=== PATIENT | male | born 1960 | race Caucasian/White ===

== ENCOUNTER 2019-09-05 09:19 | Emergency (ER) | payer MEDICARE, MEDICAID, SELFPAY ==
--- NOTE | ~2019-09-05 | XR_ITS ---
[id number] DATE: 09/05/2019 09:39 INDICATION: Anterior lower right rib pain TECHNIQUE: PA chest. 3 views of the right ribs. COMPARISON: None FINDINGS: No recent right rib fracture or bone destruction is evident. No pneumothorax. Diffuse idiopathic skeletal hyperostosis of the thoracic spine. IMPRESSION: No recent rib fracture or bone destruction detected Reviewed, dictated and finalized at [facility]. Reviewed, dictated and finalized at location A.
[2019-09-05 09:19] VITALS: BP 130/94; PULSE 73; RESP 20; TEMP 36.4; O2SAT 97
--- NOTE | 2019-09-05 09:21 | ECG_ITS ---
Measurements Intervals [place] Rate: 74 P: 49 DC: 184 QRS: 21 QRSD: 84 T: 41 QT: 363 QTc: 404 Interpretive Statements SINUS RHYTHM NORMAL ECG Electronically Signed On 09-05-2019 9:33:57 CDT by Renny Dc D.O.
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
--- NOTE | 2019-09-05 11:16 | PC.NURSE ---
Introduced to patient, bedside report from off-going RN.
[2019-09-05 11:43] VITALS: BP 132/94; PULSE 70; RESP 16; TEMP 36.6; O2SAT 99
== END 2019-09-05 11:45 | disposition home or self-care (01) ==
PROVIDERS: Emergency Provider Emergency Medicine; PCP Family Medicine
DX: R07.81 Pleurodynia (principal); F17.200 Nicotine dependence, unspecified, uncomplicated; Y04.2XXA Assault by strike against or bumped into by another person, initial encounter
CPT/HCPCS: 71101; 93005; 99283

== ENCOUNTER 2020-04-04 14:57 | Emergency (ER) | payer MEDICARE, MEDICAID, SELFPAY ==
--- NOTE | ~2020-04-04 | CT_ITS ---
EXAMINATION: CT brain wo con INDICATION: Fall and confusion COMPARISON: 10/14/2007 TECHNIQUE: Standard unenhanced head CT. The dose-length product (DLP) was 605.33 mGy-cm. The mA was a djusted according to patient size. Iterative reconstruction technique was employed. FINDINGS: There is no acute intraparenchymal hemorrhage. No evidence of mass lesion. No evidence of a cute infarction. There is a chronic infarct of the left frontal lobe. There is moderate periventricul ar and subcortical hypodensity probably related to small vessel ischemic disease. Cavum septum lucidu m is noted. There is mild prominence of the sulci and ventricles related to cerebral atrophy. Intracr anial calcified cerebral atherosclerosis is noted. There are no extra-axial collections. There is no mass effect or midline shift. The orbits and soft tissues are unremarkable. The visualized sinuses a nd mastoid air cells are well aerated. IMPRESSION: 1. Old left frontal lobe infarct without acute intracranial abnormality. 2. Age related findings. Reviewed, dictated and finalized at location A. TROMECHANICAL TECHNOLOGIST
--- NOTE | ~2020-04-04 | CT_ITS ---
EXAMINATION: CT cervical spine wo con DATE: 04/04/2020 17:06 INDICATION: Neck pain TECHNIQUE: Computed tomography (CT) of the cervical spine was performed without intravenous contrast. The dose-length product (DLP) was 184.15 mGy-cm. Automated exposure control and iterative reconstruc tion technique were employed. COMPARISON: None FINDINGS: There is no fracture. The vertebral body heights are normal. There are 2 mm retrolisthesis of C5 on C6. There is mild loss of intervertebral disc space height at C5-6. The odontoid is intact. The prevertebral soft tissues are normal. Small degenerative osteophytes project from the anterior en dplates of multiple vertebral bodies. There is moderate to severe facet and uncovertebral joint osteo arthritis. IMPRESSION: 1. Mild cervical spondylosis without acute findings. Reviewed, dictated and finalized at location A. ANICAL ENGINEERING TECHNICIAN
[2020-04-04 14:57] VITALS: BP 159/95; PULSE 75; RESP 18; TEMP 36.6; O2SAT 98
--- NOTE | 2020-04-04 15:11 | ECG_ITS ---
Measurements Intervals [place] Rate: 72 P: 25 [place]: 173 QRS: 9 QRSD: 89 T: 45 QT: 360 QTc: 397 Interpretive Statements SINUS RHYTHM BORDERLINE T WAVE ABNORMALITY- ANTERIOR LEADS BASELINE ARTIFACT- I, II, V1-V3, V6 BORDERLINE ECG Electronically Signed On 04-04-2020 16:32:55 [place] by Renny Dc D.O.
[2020-04-04 15:23] VITALS: BP 159/90; PULSE 76; RESP 22; TEMP 36.8; O2SAT 97
[2020-04-04 15:30] VITALS: RESP 16; O2SAT 99
[2020-04-04 15:42] LABS: Basophils Percent Auto 0.5 % (0.2-1.2); Eosinophils Absolute Auto 0.1 K/mm3 (0-0.3); Eosinophils Percent Auto 0.9 % (0-4.4); Hematocrit 43.6 % (42.0-52.0); Hemoglobin 14.4 g/dL (14.0-18.0); Immature Granulocyte Absolute 0.01 K/mm3 (0.00-0.031); Immature Granulocyte Percent A 0.2 % (0-0.5); Lymphocytes Absolute Auto 1.76 K/mm3 (0.9-3.2); Lymphocytes Percent Auto 27.3 % (18.3-44.2); Mean Corpuscular Hemoglobin 31.6 pg (26-34); Mean Corpuscular Volume 95.6 fl (80-100); Mean Platelet Volume 9.2 fl (7.4-10.4); Monocytes Absolute Auto 0.5 K/mm3 (0.1-0.6); Monocytes Percent Auto 8.1 % (2.6-8.5); Neutrophils Absolute Auto 4.1 K/mm3 (1.3-6.7); Platelet Count Result 240 k/mm3 (150-375); Red Blood Count 4.56 M/mm3 (4.6-6.20); Red Cell Distribution Width 14.3 % (11.5-14.5); White Blood Count 6.5 K/mm3 (4.5-10.0)
[2020-04-04 15:44] LABS: Add Urine Microscopic? NO; Appearance Urine Clear (Clear); Bilirubin Urine Negative (Negative); Blood Urine Negative (Negative); Color Urine Colorless (Yellow); Glucose Urine UA Negative (Negative); Ketones Urine Negative (Negative); Leukocyte Esterase Ur Negative LEU/UL (Negative); Nitrate Urine Negative (Negative); Protein Urine Negative (Negative); Specific Grav Ur 1.005 (1.001-1.035); Urobilinogen Urine Negative mg/dL (<2.0)
[2020-04-04 15:56] LABS: Alanine Aminotransferase 18 U/L (4-50); Albumin Level 4.1 g/dL (3.5-5.1); Alkaline Phosphatase 58 U/L (38-126); Anion Gap 9 mmol/L (8-16); Aspartate Amino Transferase 24 U/L (17-59); Bilirubin,Total 0.4 mg/dL (0.2-1.3); Blood Urea Nitrogen 17 mg/dL (9-20); Calcium 9.1 mg/dL (8.4-10.2); Carbon Dioxide 31 mmol/L (22-30); Chloride 100 mmol/L (98-107); Estimated CRCL calculation 90 ml/min; Estimated Glomerular Filt Rate > 60; Ethanol 265 mg/dL (<10); Glucose 121 mg/dL (75-110); Potassium 3.6 mmol/L (3.4-5.0); Sodium 140 mmol/L (137-145)
[2020-04-04 15:58] LABS: Amphetamine Screen Urine Negative (Negative); Barbiturate Screen Urine Negative (Negative); Benzodiazepines Screen Urine Negative (Negative); Cannabinoid Screen Urine Negative (Negative); Cocaine Screen Urine Negative (Negative); Methadone Screen Urine Negative (Negative); Opiate Screen Urine Negative (Negative); Phencyclidine Screen Urine Negative (Negative)
--- NOTE | 2020-04-04 16:31 | ED.FALL ---
HPI - Fall General Chief Complaint: Fall Stated Complaint: Intoxication Time Seen by Provider: 04/04/20 15:25 Related Data Home Medications Medication Instructions Recorded Confirmed famotidine 09/05/19 ziprasidone HCl 09/05/19 Allergies Allergy/AdvReac Type Severity Reaction Status Date / Time No Known Allergies Allergy Unverified 09/05/19 09:29 Review of Systems Review of Systems: Narrative: CONSTITUTIONAL: Denies fever, chills, or sweats. EYES: Denies visual changes, redness, or discharge. ENT: Denies rhinorrhea, congestion, sore throat, or otalgia. CARDIOVASCULAR: Denies chest pain, palpitations, or edema. RESPIRATORY: Denies cough or dyspnea. GASTROINTESTINAL: Denies abdominal pain, nausea, vomiting, or diarrhea. GENITOURINARY: Denies dysuria or hematuria. SKIN: Denies rash or itching. MUSCULOSKELETAL: Denies back pain, joint pain, or myalgia. NEUROLOGIC: Denies headache, numbness, dizziness, or weakness. PSYCHIATRIC: Denies anxiety or depression. [facility] Past Medical History Medical History (Updated 04/04/20 @ 18:03 by MARIA D Mayo) Alcohol abuse Depression Eczema 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 No natural teeth Skull fracture Type 2 diabetes, diet controlled Social History Social History Smoking status: Current every day smoker Tobacco type: cigarettes Alcohol intake: current Substance use: unknown Gender identity (if verbalized by the patient): Male Exam Narrative: Exam Narrative: GENERAL: Well-appearing, well-nourished, and intoxicated. HEAD: Normocephalic, atraumatic. EYES: No redness or drainage. ENT: Mucous membranes pink and moist. NECK: AROM. Supple. No lymphadenopathy. CHEST: No respiratory distress. HEART: Regular rate and rhythm. No murmur appreciated. Normal peripheral pulses. EXTREMITIES: Normal range of motion. SKIN: Warm, dry, no rash. NEURO: No focal deficits. Alert and oriented x2-3. PSYCH: Normal affect. No signs of depression or anxiety. Course Reevaluation(s) Reevaluation #1: Patient sister currently at bedside at this time. Sister reports that patient will be coming home with her to stay tonight as he continues to be slightly intoxicated. Date: 04/04/20 Time: 18:06 Vital Signs Vital signs: Vital Signs Temperature 36.6 C 04/04/20 14:57 Pulse Rate 75 04/04/20 14:57 Respiratory Rate 18 04/04/20 14:57 Blood Pressure 159/95 H 04/04/20 14:57 Pulse Oximetry 98 04/04/20 14:57 Temperature 36.8 C 04/04/20 15:23 Pulse Rate 71 04/04/20 16:35 Respiratory Rate 18 04/04/20 16:35 Blood Pressure 119/74 04/04/20 16:35 Pulse Oximetry 100 04/04/20 16:35 Reviewed-patient is informed that they may have pre-hypertension or hypertension based on a blood pressure reading. I recommend the patient call the primary care provider listed on their discharge instructions or a physician of their choice this week to arrange follow-up for further evaluation of possible pre-hypertension or hypertension. MDM - Fall MDM Narrative Medical decision making narrative: Patient CT G was like x-ray was negative patient CT negative for abnormality. Patient's lab work is nonremarkable. Patient is intoxicated at this time. Patient's sister arrives to see patient and take patient home. Discussed with sister and patient that patient needs to stop drinking alcohol as falls many other injuries could occur. Patient is stable for discharge to home at this time with sister. Differential Diagnosis Differential diagnosis: Likely syncope and other (EtOH, fall) Lab Data Result diagrams: 04/04/20 15:31 04/04/20 15:31 Labs: Lab Results 04/04/20 04/04/20 04/04/20 Range/Units 15:31 15:31 15:31 WBC 6.5 (4.5-10.0) K/mm3 RBC 4.56 L (4.6-6.20) M/mm3 Hgb 14.4 (14.0-18.0) g/dL Hct 43.6 (42.0-52.0) % MCV 95.6 (80-100) fl MCH 31.6 (26-34) pg MCHC 3
[2020-04-04 16:35] VITALS: BP 119/74; PULSE 71; RESP 18; O2SAT 100
[2020-04-04 18:08] VITALS: BP 123/71; PULSE 74; RESP 19; TEMP 36.3; O2SAT 99
== END 2020-04-04 18:08 | disposition home or self-care (01) ==
PROVIDERS: Emergency Medicine; Emergency Provider Nurse Practitioner; PCP Family Medicine
DX: F10.129 Alcohol abuse with intoxication, unspecified (principal); F32.9 Major depressive disorder, single episode, unspecified; E11.9 Type 2 diabetes mellitus without complications; F17.210 Nicotine dependence, cigarettes, uncomplicated; R03.0 Elevated blood-pressure reading, without diagnosis of hypertension; Y90.8 Blood alcohol level of 240 mg/100 ml or more; Z79.899 Other long term (current) drug therapy
CPT/HCPCS: 36415; 70450; 72125; 80053; 80307; 81003; 85025; 93005; 99284

== ENCOUNTER 2020-05-31 19:03 | Emergency (ER) | payer MEDICARE, MEDICAID, SELFPAY ==
--- NOTE | ~2020-05-31 | CT_ITS ---
EXAMINATION: CT brain wo con INDICATION: Head injury COMPARISON: 04/04/2020 TECHNIQUE: Standard unenhanced head CT. The dose-length product (DLP) was 681.00 mGy-cm. The mA was a djusted according to patient size. Iterative reconstruction technique was employed. FINDINGS: There is no acute intraparenchymal hemorrhage. No evidence of mass lesion. No evidence of a cute infarction. There is an old infarct of the left frontal lobe. There is moderate periventricular and subcortical hypodensity probably related to small vessel ischemic disease. There is mild prominen ce of the sulci and ventricles related to cerebral atrophy. Intracranial calcified cerebral atheroscl erosis is noted. There are no extra-axial collections. There is no mass effect or midline shift. The orbits and soft tissues are unremarkable. The visualized sinuses and mastoid air cells are well aera lakisha. IMPRESSION: 1. Old left frontal lobe infarct without acute intracranial abnormality. 2. Age related findings. Reviewed, dictated and finalized at location A. ICAL ASST
--- NOTE | ~2020-05-31 | CT_ITS ---
EXAMINATION: CT cervical spine wo con DATE: 05/31/2020 20:14 INDICATION: Head injury TECHNIQUE: Computed tomography (CT) of the cervical spine was performed without intravenous contrast. The dose-length product (DLP) was 192.38 mGy-cm. Automated exposure control and iterative reconstruc tion technique were employed. COMPARISON: 04/04/2020 FINDINGS: There is no fracture. The vertebral body heights are normal. Again noted are 2 mm of stable retrolisthesis of C5 on C6. There is mild loss of intervertebral disc space height at C5-6. The odon toid is intact. The prevertebral soft tissues are normal. Small degenerative osteophytes project from the anterior endplates of multiple vertebral bodies. There is moderate to severe multilevel facet an d uncovertebral joint osteoarthritis. IMPRESSION: 1. Mild cervical spondylosis without acute findings or significant interval change. Reviewed, dictated and finalized at location A. MARKETING STRATEGIST IMPRESSION: 1. Mild cervical spondylosis without acute findings or significant interval ely nge.
[2020-05-31 19:06] VITALS: BP 126/98; PULSE 88; RESP 18; TEMP 36.6; O2SAT 100
[2020-05-31 20:00] VITALS: BP 128/77; PULSE 76; RESP 13; O2SAT 100
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
[2020-05-31 21:00] VITALS: BP 114/69; PULSE 68; RESP 14; O2SAT 98
[2020-05-31] MEDS: TETANUS,DIPHTHERIA,AC PERTUSSIS ADULT (0.5 ML) BOOSTRIX IM (21:52)
[2020-05-31 22:00] VITALS: BP 111/72; PULSE 68; RESP 12; O2SAT 99
[2020-05-31 22:58] VITALS: BP 109/74; PULSE 68; RESP 14; O2SAT 96
[2020-05-31 23:20] VITALS: BP 121/78; PULSE 88; RESP 19; O2SAT 99
== END 2020-05-31 23:20 | disposition home or self-care (01) ==
PROVIDERS: Emergency Provider Emergency Medicine; PCP Family Medicine
DX: S01.112A Laceration without foreign body of left eyelid and periocular area, initial encounter (principal); E11.9 Type 2 diabetes mellitus without complications; F17.210 Nicotine dependence, cigarettes, uncomplicated; Z23 Encounter for immunization; W18.09XA Striking against other object with subsequent fall, initial encounter
CPT/HCPCS: 12011; 70450; 72125; 90471; 90715; 99284

== ENCOUNTER → 2021-06-23 10:18 | Outpatient (CLI) | payer OTHER, SELFPAY ==
--- NOTE | ~2021-06-23 | XR_ITS ---
EXAMINATION: XR chest 2V DATE: 06/23/2021 11:16 INDICATION: Chest pain TECHNIQUE: PA and lateral views of the chest are obtained. COMPARISON: 09/05/2019 FINDINGS: The lungs are free of acute opacities. There is no pleural effusion or pneumothorax. The ca rdiomediastinal silhouette is normal. There are bridging osteophytes at multiple levels in the spine, consistent with diffuse idiopathic skeletal hyperostosis (DISH). IMPRESSION: 1. No acute cardiopulmonary abnormality. Reviewed, dictated and finalized at location B.
--- NOTE | ~2021-06-23 | XR_ITS ---
EXAMINATION: XR knee RT 3V DATE: 06/23/2021 11:16 INDICATION: Right knee pain TECHNIQUE: Three views of the right knee were obtained. COMPARISON: None. FINDINGS: Alignment is normal. No fracture or osteochondral lesion. There is mild tricompartmental os teoarthritis characterized by tiny marginal osteophytes. No joint effusion/synovitis. Soft tissues a re unremarkable. IMPRESSION: 1. Tricompartmental osteoarthritis. Reviewed, dictated and finalized at location B.
== END ==
PROVIDERS: PCP Emergency Medicine; Visit Provider Emergency Medicine
DX: Z87.891 Personal history of nicotine dependence (principal); M17.11 Unilateral primary osteoarthritis, right knee
CPT/HCPCS: 71046; 73562

== ENCOUNTER 2021-06-28 08:48 | Emergency (ER) | payer OTHER, SELFPAY ==
[2021-06-28 08:55] VITALS: BP 150/88; PULSE 72; RESP 12; TEMP 36.4; O2SAT 100
--- NOTE | 2021-06-28 09:02 | PC.NURSE ---
RN attempted to call pt. family x2 no answer.
--- NOTE | 2021-06-28 09:06 | ED.RECABL ---
HPI - Recheck/Abnormal Lab/Rx General Chief Complaint: Recheck/Abnormal Lab/Rx Stated Complaint: low blood counts Time Seen by Provider: 06/28/21 08:58 History of Present Illness HPI narrative: 61-year-old male who is a poor historian presents the emergency room from his doctor's office stating that he had abnormal labs . Patient unable to give any further history. Patient denies any other medical problems. Denies injuries. Related Data Home Medications Medication Instructions Recorded Confirmed No Home Medications 05/31/20 Allergies Allergy/AdvReac Type Severity Reaction Status Date / Time No Known Allergies Allergy Verified 06/28/21 08:59 Review of Systems Review of Systems: CONSTITUTIONAL: Denies fever, chills, or sweats. EYES: Denies visual changes, redness, or discharge. ENT: Denies rhinorrhea, congestion, sore throat, or otalgia. CARDIOVASCULAR: Denies chest pain, palpitations, or edema. RESPIRATORY: Denies cough or dyspnea. GASTROINTESTINAL: Denies abdominal pain, nausea, vomiting, or diarrhea. GENITOURINARY: Denies dysuria or hematuria. SKIN: Denies rash or itching. MUSCULOSKELETAL: Denies back pain, joint pain, or myalgia. NEUROLOGIC: Denies headache, numbness, dizziness, or weakness. PSYCHIATRIC: Denies anxiety or depression. [facility] Past Medical History Medical History Alcohol abuse Depression Eczema 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 No natural teeth Skull fracture Type 2 diabetes, diet controlled Social History Social History Smoking status: Current every day smoker Tobacco type: cigarettes Alcohol intake: current Substance use: unknown Gender identity (if verbalized by the patient): Male Sexual Orientation (if Verbalized by the Patient): Straight or Heterosexual Exam Narrative: GENERAL: Well-appearing, well-nourished, and in no acute distress. HEAD: Normocephalic, atraumatic. EYES: PERRLA and EOMI. ENT: Nares clear, no rhinorrhea or epistaxis. Mucous membranes moist. CHEST: Coarse breath sounds lower HEART: Regular rate and rhythm. No murmur heard. Normal peripheral pulses. ABDOMEN: Soft, nontender, nondistended, normal active bowel sounds. EXTREMITIES: Normal range of motion. No edema. SKIN: Warm, dry, no rash. NEURO: No focal deficits. Alert and oriented x3. PSYCH: Normal mood and affect. Course Vital Signs Vital signs: Vital Signs Temperature 36.4 C 06/28/21 08:55 Pulse Rate 72 06/28/21 08:55 Respiratory Rate 12 06/28/21 08:55 Blood Pressure 150/88 H 06/28/21 08:55 Pulse Oximetry 100 06/28/21 08:55 Temperature 36.4 C 06/28/21 08:55 Pulse Rate 72 06/28/21 08:55 Respiratory Rate 12 06/28/21 09:31 Blood Pressure 150/88 H 06/28/21 08:55 Pulse Oximetry 100 06/28/21 09:31 MDM - Recheck/Abnormal Lab/Rx MDM Narrative Medical decision making narrative: 61-year-old male presented to emergency room with no complaints from his physician's office. 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 During ER stay patient's oxygen has been at 100%. CBC and CMP are unremarkable will discharge patient have follow-up with PCP. Lab Data Attestation: I reviewed the patient's lab results. Result diagrams: 06/28/21 09:19 06/28/21 09:19 Labs: Lab Results 06/28/21 06/28/21 Range/Units 09:19 09:19 WBC 4.8 (4.5-10.0) K/mm3 RBC 5.16 (4.6-6.20) M/mm3 Hgb 15.9 (14.0-18.0) g/dL Hct 49.0 (42.0-52.0) % MCV 95.0 (80-100) fl MCH 30.8 (26-34) pg MCHC 32.4 (32-36) g/dl RDW 14.0 (11.5-14.5) % Plt Count 194 (150-375) k/mm3 MPV 10.2 (7.4-10.4) fl Immature Gran % (Auto) 0.2 (0-0.5) % Neut % (Auto) 59.1 (45.5-73.1) % Lymph % (Auto) 27.7 (18.3-44.2) % [place] % (Auto) 12.0 H (2.6-8.5) % Eos % (Auto)
[2021-06-28 09:27] LABS: Basophils Percent Auto 0.6 % (0.2-1.2); Eosinophils Percent Auto 0.4 % (0-4.4); Hemoglobin 15.9 g/dL (14.0-18.0); Immature Granulocyte Absolute 0.01 K/mm3 (0.00-0.031); Immature Granulocyte Percent A 0.2 % (0-0.5); Lymphocytes Absolute Auto 1.32 K/mm3 (0.9-3.2); Lymphocytes Percent Auto 27.7 % (18.3-44.2); Mean Corpuscular HGB Conc 32.4 g/dl (32-36); Mean Corpuscular Hemoglobin 30.8 pg (26-34); Mean Platelet Volume 10.2 fl (7.4-10.4); Monocytes Absolute Auto 0.6 K/mm3 (0.1-0.6); Neutrophils Absolute Auto 2.8 K/mm3 (1.3-6.7); Neutrophils Percent Auto 59.1 % (45.5-73.1); Platelet Count Result 194 k/mm3 (150-375); Red Blood Count 5.16 M/mm3 (4.6-6.20); White Blood Count 4.8 K/mm3 (4.5-10.0)
[2021-06-28 09:31] VITALS: RESP 12; O2SAT 100
[2021-06-28 09:38] LABS: Alanine Aminotransferase 17 U/L (4-50); Albumin Level 4.6 g/dL (3.5-5.1); Alkaline Phosphatase 70 U/L (38-126); Anion Gap 7 mmol/L (8-16); Aspartate Amino Transferase 22 U/L (17-59); Blood Urea Nitrogen 19 mg/dL (9-20); Calcium 9.4 mg/dL (8.4-10.2); Carbon Dioxide 29 mmol/L (22-30); Chloride 101 mmol/L (98-107); Estimated Glomerular Filt Rate > 60; Glucose 147 mg/dL (65-110); Potassium 4.6 mmol/L (3.4-5.0); Sodium 137 mmol/L (137-145)
[2021-06-28 10:08] VITALS: BP 130/83; PULSE 64; RESP 12; RESP 14; O2SAT 100
[2021-06-28 10:15] VITALS: BP 133/88; PULSE 88; RESP 19; O2SAT 97
== END 2021-06-28 10:15 | disposition home or self-care (01) ==
PROVIDERS: Emergency Provider Nurse Practitioner Family; PCP Emergency Medicine
DX: Z04.89 Encounter for examination and observation for other specified reasons (principal); E11.9 Type 2 diabetes mellitus without complications; F17.210 Nicotine dependence, cigarettes, uncomplicated
CPT/HCPCS: 36415; 80053; 85025; 99283

== ENCOUNTER 2021-07-01 19:47 | Emergency (ER) | payer OTHER, SELFPAY ==
[2021-07-01 19:59] VITALS: BP 125/86; PULSE 93; RESP 18; TEMP 36.4; O2SAT 100
--- NOTE | 2021-07-02 01:38 | PC.NURSE ---
PT aox3 walked out of waiting room.
--- NOTE | 2021-07-02 01:49 | PC.NURSE ---
no answer x1 for room
--- NOTE | 2021-07-02 02:10 | PC.NURSE ---
2nd call for a room, pt no answer. lwbs status marked.
== END 2021-07-02 03:19 | disposition left against medical advice (07) ==
LOC: ANHED 07-02 02:57
PROVIDERS: PCP Emergency Medicine
DX: M79.672 Pain in left foot (principal); M79.671 Pain in right foot
CPT/HCPCS: 99199

== ENCOUNTER 2022-10-28 20:12 | Inpatient (IN) | payer OTHER, SELFPAY ==
[2022-10-28] VITALS (11 sets, daily range): BP systolic 124–161; BP diastolic 74–91; PULSE 81–90; RESP 24–47; TEMP 36.9; O2SAT 84–97
--- NOTE | ~2022-10-28 | XR_ITS ---
EXAMINATION: XR chest 2V DATE: 11/02/2022 16:32 INDICATION: Hypoxia TECHNIQUE: AP and lateral views of the chest are obtained. COMPARISON: 10/28/2022 FINDINGS: There is mild atelectasis of the lung bases, left greater than right. Mild pulmonary edema persists with interval improvement. There are small pleural effusions. There is no pneumothorax the c ardiomediastinal silhouette is stable. There is moderate thoracic spondylosis. IMPRESSION: 1. Improving pulmonary edema. 2. Small pleural effusions. Reviewed, dictated and finalized at location F.
--- NOTE | ~2022-10-28 | XR_ITS ---
EXAM: XR hip RT 2V w AP pelvis DATE: 10/28/2022 20:57 HISTORY: pain status post fall . COMPARISON: None available. FINDINGS: Normal mineralization. Comminuted right intertrochanteric fracture with medial angulation. No lytic or blastic lesion. Moderate lumbar degenerative disc disease. Moderate bilateral hip osteoa rthritis. Mild degenerative changes in the bilateral SI joints and pubic symphysis. No erosion or per iosteal change. Soft tissues within normal limits. IMPRESSION: Comminuted, mildly angulated right intertrochanteric fracture. Reviewed, dictated and finalized at location K.
--- NOTE | ~2022-10-28 | US_ITS ---
EXAMINATION: US venous doppler [facility] DATE: 11/03/2022 20:07 INDICATION: Bilateral lower limb pain and swelling TECHNIQUE: Pressley scale images without and with compression and Doppler images of the right lower extre mity veins were obtained. Patient terminated the examination and images of the left lower limb were n ot obtained. COMPARISON: None FINDINGS: The right common femoral vein, greater saphenous vein, profunda femoral vein, femoral vein are patent . The left lower extremity veins were not imaged. IMPRESSION: 1. Limited evaluation of the lower extremity veins due to patient prematurely ending the examination. Visualized deep veins of the proximal right lower extremity are patent. Reviewed, dictated and finalized at location F. IMPRESSION: 1. Limited evaluation of the lower extremity veins due to patient prematurely e nding the examination. Visualized deep veins of the proximal right lower extrem ity are patent.
--- NOTE | ~2022-10-28 | XR_ITS ---
EXAM: [id number]_[id number]_CR DATE: 10/28/2022 20:58 HISTORY: pain status post fall . COMPARISON: None available. FINDINGS: Exam limited by obliquity in both frontal and lateral views. Normal mineralization. Cortic al break noted overlying the lateral patella or femoral condyle. Otherwise no fracture or dislocation . No lytic or blastic lesion. Joint spaces are maintained. No erosion or periosteal change. Soft tiss ues within normal limits. IMPRESSION: Exam limited by positioning difficulties. Possible cortical break laterally, may represen t a lateral condylar fracture or summation artifact from a bipartite patella or patellar osteophytes. Consider repeat 4 view radiographic study of the knee, with attention to standard positioning in the frontal, oblique, and lateral views and the addition of a sunrise view, if the patient's clinical con dition permits. Reviewed, dictated and finalized at location K. IMPRESSION: Exam limited by positioning difficulties. Possible cortical break l aterally, may represent a lateral condylar fracture or summation artifact from a bipartite patella or patellar osteophytes. Consider repeat 4 view radiographic study of the knee, with attention to standa rd positioning in the frontal, oblique, and lateral views and the addition of a sunrise view, if the patient's clinical condition permits.
--- NOTE | ~2022-10-28 | XR_ITS ---
EXAMINATION: XR chest 1V Exam Date/Time: 10/28/2022 20:45 CDT HISTORY: fall chest wall contusion Comparison: 06/23/2021. RESULT: Lines, tubes, and devices: None. Lungs and pleura: Slightly low volumes. Streaky bibasilar opacities, likely scar/atelectasis. Diffus e reticular opacities. Cardiomediastinal silhouette: Stable. Other: No acute osseous or upper abdominal finding. IMPRESSION: Mild interstitial edema. No other acute process detected in the chest. Reviewed, dictated and finalized at location K.
--- NOTE | ~2022-10-28 | XR_ITS ---
XR knee RT min 4V DATE: 10/28/2022 22:02 INDICATION: Pain following fall TECHNIQUE: 5 views including 2 crosstable lateral views COMPARISON: 06/19/2021 right knee FINDINGS: There is a chronic lucency at the superolateral aspect of the patella, also present on 06/19, possibly due to bipartite patella or other chronic process. There is mild periarticular spurring of the patella. Medial and lateral compartment joint spaces are well preserved. No fracture or dislocation or joint effusion. No periosteal reaction or bone destruction. No radiopaq ue intra-articular loose body or chondrocalcinosis. There is diffuse osteopenia. IMPRESSION: No recent fracture or dislocation or joint effusion Mild osteoarthritis Reviewed, dictated and finalized at location A.
--- NOTE | ~2022-10-28 | CT_ITS ---
EXAMINATION: CT cervical spine wo con DATE: 10/28/2022 21:16 INDICATION: Fall head injury TECHNIQUE: Computed tomography (CT) of the cervical spine was performed without intravenous contrast. Automated exposure control and iterative reconstruction technique were employed. The dose-length pro duct was 372.38 mGy-cm. COMPARISON: 05/31/2020. FINDINGS: Vertebral Body Alignment: Intact. Reversed lordosis, centered at C5-6. Craniocervical and atlantoaxial alignment: Moderate degenerative change. Alignment intact. Osseous structures/fracture: No evidence of a lytic or blastic process in the visualized spine. No e vidence of acute fracture. Cervical soft tissues: The paraspinal soft tissues planes are maintained. Biapical pleural scarring a nd small pleural blebs. Degenerative changes: Degenerative changes, without severe neural foraminal or central canal narrowin g. IMPRESSION: No acute fracture or traumatic malalignment in the cervical spine. Reviewed, dictated and finalized at location K.
--- NOTE | ~2022-10-28 | XR_ITS ---
EXAM: XR ankle RT 2V DATE: 10/28/2022 20:58 HISTORY: pain status post fall . COMPARISON: None available. FINDINGS: Normal mineralization. No fracture or dislocation. No lytic or blastic lesion. Scattered d egenerative changes. No erosion or periosteal change. Soft tissues within normal limits. IMPRESSION: No acute osseous finding in the right ankle. Reviewed, dictated and finalized at location K.
--- NOTE | ~2022-10-28 | CT_ITS ---
EXAMINATION: CT brain wo con DATE: 10/28/2022 21:16 INDICATION: Fall head injury . TECHNIQUE: Computed tomography (CT) of the head was performed without intravenous contrast. The mA wa s adjusted according to patient size. Iterative reconstruction technique was employed. The dose-lengt h product was 605.33 mGy-cm. COMPARISON: None. FINDINGS: No acute intracranial hemorrhage or extra-axial fluid collection. No hydrocephalus, mass, or herniation. No acute ischemic infarct. Unremarkable dural venous sinus attenuation. No acute osseous abnormality. Right maxillary air-fluid level. Mucosal thickening in the bilateral maxillary and ethmoid sinuses, t he remaining aerated spaces are clear. Mild atrophy and moderate chronic white matter change. Atherosclerotic intracranial calcification. Le ft frontal encephalomalacia. IMPRESSION: No acute intracranial process. Paranasal sinus findings may represent acute sinusitis in the appropriate clinical context Reviewed, dictated and finalized at [facility] K. IMPRESSION: No acute intracranial process. Paranasal sinus findings may represent acute sinusitis in the appropriate clini gilda context
--- NOTE | ~2022-10-28 | CT_ITS ---
EXAMINATION: CTA chest PE protocol DATE: 11/02/2022 21:08 INDICATION: Hypoxia TECHNIQUE: Computed tomography angiography (CTA) of the chest was performed with 100 mL Omnipaque-350 intravenous contrast timed to evaluate the pulmonary arteries. Coronal maximum intensity projection 3D-reconstructions were created by the technologist. The dose-length product (DLP) was 434.02 mGy-cm. Automated exposure control and iterative reconstruction technique were employed. COMPARISON: None. FINDINGS: There is moderate opacification of the pulmonary arteries. There is a pulmonary embolus in the distal aspect of the left main pulmonary artery extending into the lingula, left upper lobe, and left lower lobe. There appear to be subsegmental emboli in the right lower lobe. Evaluation of periph eral pulmonary arterial branches is limited by respiratory motion. There is straightening of the inte rventricular septum. Cardiomegaly is noted. There are no pathologically enlarged thoracic lymph nodes . Mild bilateral gynecomastia is noted. There are small pleural effusions. No pneumothorax is identif ied. Airspace opacities of the left lower lobe are consistent with atelectasis versus pneumonia. Ther e is mild dependent atelectasis of the right lung. There is mild thoracic spondylosis. There is an ag e-indeterminate compression fracture of the T7 vertebral body. A mildly comminuted right scapular fra cture is noted. IMPRESSION: 1. Acute pulmonary emboli in the distal aspect of the left main pulmonary artery extending into the l ingula, left upper lobe, left lower lobe, and in the right lower lobe with questionable right heart s train. 2. Left lower lobe airspace opacities, consistent with atelectasis versus pneumonia. 3. Cardiomegaly. 4. Mildly comminuted right scapular fracture. These findings were discussed with Mayela on [facility] at 2131 hours on 11/02/2022. Reviewed, dictated and finalized at location F. IMPRESSION: 1. Acute pulmonary emboli in the distal aspect of the left main pulmonary arter y extending into the lingula, left upper lobe, left lower lobe, and in the righ t lower lobe with questionable right heart strain. 2. Left lower lobe airspace opacities, consistent with atelectasis versus pneum onia. 3. Cardiomegaly. 4. Mildly comminuted right scapular fracture. These findings were discussed with Mayela on [facility] at 2131 hours on 023.
--- NOTE | ~2022-10-28 | XR_ITS ---
EXAMINATION: XR surgery orthopedic DATE: 10/30/2022 14:59 INDICATION: Right femoral intertrochanteric nailing TECHNIQUE: 5 fluoroscopic images of the right hip and femur were obtained during procedure performed by Dr. Kirkpatrick. Radiologist was not present for the imaging or procedure. The amount of fluoroscopy t deangelo used during this procedure was 0.8 minutes. COMPARISON: 10/28/2022 FINDINGS: Interval reduction and internal fixation of the previously seen intertrochanteric fracture of the pro ximal right femur with an antegrade intramedullary lary and distal interlocking screw and femoral neck dynamic compression screw fixation. Alignment appears near-anatomic. No new fractures identified. Mi ld to moderate osteoarthritis at the right hip. IMPRESSION: 1. Near-anatomic alignment post reduction and internal fixation of an intratrochanteric fracture of t he proximal right femur. Reviewed, dictated and finalized at location B. IMPRESSION: 1. Near-anatomic alignment post reduction and internal fixation of an intratroc hanteric fracture of the proximal right femur.
--- NOTE | 2022-10-28 20:24 | ECG_ITS ---
Measurements Intervals [place] Rate: 84 P: 64 [place]: 174 QRS: 0 QRSD: 93 T: 46 QT: 366 QTc: 434 Interpretive Statements SINUS RHYTHM CANNOT RULE OUT SEPTAL INFARCT, AGE INDETERMINATE ABNORMAL ECG COMPARED TO ECG 04/04/2020 15:02:15 MYOCARDIAL INFARCT FINDING NOW PRESENT Electronically Signed On 10-29-2022 8:47:07 CDT by Renny Dc D.O.
--- NOTE | 2022-10-28 20:39 | ED.GENADULT ---
HPI - General Adult General Chief complaint: Fall Stated complaint: FALL, R KNEE PAIN Time Seen by Provider: 10/28/22 20:20 History of Present Illness HPI narrative: Patient is a 62-year-old female presents emergency department with chief complaint of fall. Patient reports he is a resident of a independent living facility [facility] the patient last night fell striking his head landing on his right side of his body patient reports that he laid on the floor since last night around 5 PM patient states that he was found today and was unable to get up under his own power. The patient reports that he has pain in his right lower extremity reports that he has an abrasion to his chest wall and reports that he did hit his head. Patient reports no nausea no vomiting but reports he was unable to ambulate. 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 No natural teeth Skull fracture Type 2 diabetes, diet controlled Social History Social History Smoking status: Current every day smoker Tobacco type: cigarettes Alcohol intake: current Substance use: unknown Gender identity (if verbalized by the patient): Male Sexual Orientation (if Verbalized by the Patient): Straight or Heterosexual Course Vital Signs Vital signs: Vital Signs Temperature 36.9 C 10/28/22 20:14 Pulse Rate 89 10/28/22 20:14 Respiratory Rate 25 H 10/28/22 20:14 Blood Pressure 150/85 H 10/28/22 20:14 Pulse Oximetry 92 10/28/22 20:14 Oxygen Delivery Room Air 10/28/22 20:14 Temperature 36.9 C 10/28/22 20:14 Pulse Rate 89 10/28/22 20:14 Respiratory Rate 25 H 10/28/22 20:14 Blood Pressure 150/85 H 10/28/22 20:14 Pulse Oximetry 95 10/28/22 21:20 Oxygen Delivery Nasal Cannula 10/28/22 21:20 Oxygen Flow Rate 2 10/28/22 21:20 Medical Decision Making [facility] Narrative Medical decision making narrative: Fracture, rhabdomyolysis, dehydration Ankle x-rays were obtained that showed evidence of inotrope fracture of the right hip knee x-ray was questionable for possible fracture. Repeat x-rays of the right knee were ordered. Patient CT head and CT C-spine showed no evidence of acute abnormality laboratory studies were obtained The case was discussed with Dr. Kirkpatrick who is on-call for orthopedics who will consult on the patient Vital Signs Vital Signs: Vital Signs Temperature 36.9 C 10/28/22 20:14 Pulse Rate 89 10/28/22 20:14 Respiratory Rate 25 H 10/28/22 20:14 Blood Pressure 150/85 H 10/28/22 20:14 Pulse Oximetry 92 10/28/22 20:14 Oxygen Delivery Room Air 10/28/22 20:14 Temperature 36.9 C 10/28/22 20:14 Pulse Rate 89 10/28/22 20:14 Respiratory Rate 25 H 10/28/22 20:14 Blood Pressure 150/85 H 10/28/22 20:14 Pulse Oximetry 95 10/28/22 21:20 Oxygen Delivery Nasal Cannula 10/28/22 21:20 Oxygen Flow Rate 2 10/28/22 21:20 Lab Data 10/28/22 21:34 10/28/22 21:34 Labs: Lab Results 10/28/22 Range/Units 21:34 WBC Pending RBC Pending Hgb Pending Hct Pending MCV Pending MCH Pending MCHC Pending RDW Pending Plt Count Pending MPV Pending Immature Gran % (Auto) Pending Neut % (Auto) Pending Lymph % (Auto) Pending [place] % (Auto) Pending Eos % (Auto) Pending Baso % (Auto) Pending Lymph # (Auto) Pending [place] # (Auto) Pending Eos # (Auto) Pending Baso # (Auto) Pending Abs Immat Gran (auto) Pending Absolute Neuts (auto) Pending Absolute Nucleated RBC Pending Nucleated RBC % Pending Sodium Pending Potassium Pending Chloride Pending Carbon Dioxide Pending
[2022-10-28] MEDS: MORPHINE SULFATE (*CRX) 4 MG/ML INJ 2 MG IV PUSH (21:22)
[2022-10-28 21:40] LABS: Basophils Percent Auto 0.1 % (0.2-1.2); Hematocrit 43.2 % (42.0-52.0); Hemoglobin 14.5 g/dL (14.0-18.0); Immature Granulocyte Absolute 0.06 K/mm3 (0.00-0.031); Immature Granulocyte Percent A 0.4 % (0-0.5); Lymphocytes Absolute Auto 0.47 K/mm3 (0.9-3.2); Lymphocytes Percent Auto 3.5 % (18.3-44.2); Mean Corpuscular HGB Conc 33.6 g/dl (32-36); Mean Corpuscular Hemoglobin 31.5 pg (26-34); Mean Corpuscular Volume 93.7 fl (80-100); Mean Platelet Volume 9.2 fl (7.4-10.4); Monocytes Percent Auto 7.2 % (2.6-8.5); Neutrophils Percent Auto 88.8 % (45.5-73.1); Platelet Count Result 254 k/mm3 (150-375); Red Blood Count 4.61 M/mm3 (4.6-6.20); Red Cell Distribution Width 13.2 % (11.5-14.5); White Blood Count 13.5 K/mm3 (4.5-10.0)
[2022-10-28 21:52] LABS: Alanine Aminotransferase 38 U/L (6-50); Albumin Level 4.7 g/dL (3.5-5.1); Alkaline Phosphatase 95 U/L (38-126); Anion Gap 7 mmol/L (8-16); Aspartate Amino Transferase 68 U/L (17-59); Blood Urea Nitrogen 9 mg/dL (9-20); Calcium 9.2 mg/dL (8.4-10.2); Carbon Dioxide 29 mmol/L (22-30); Chloride 96 mmol/L (98-107); Estimated CRCL calculation 97 ml/min; Estimated Glomerular Filt Rate > 60; Glucose 333 mg/dL (65-110); Potassium 4.3 mmol/L (3.4-5.0); Sodium 132 mmol/L (137-145)
[2022-10-28] MEDS: SODIUM CHLORIDE 0.9% IV 1,000 ML 125 ML IV CONT (22:00)
[2022-10-28 22:05] LABS: Creatine Kinase 3817 U/L (55-170)
--- NOTE | 2022-10-29 00:15 | PC.NURSE ---
This RN called and attempted to give report. Mayela from 3rd med surg said the nurse would call this RN back.
--- NOTE | 2022-10-29 00:24 | PC.NURSE ---
This RN called again to try and give patient report to Yessi. Patient report was given at 0025.
--- NOTE | 2022-10-29 01:01 | PC.NURSE ---
This patient, Joel Browning, was admitted to [facility] Room 311-01. Patient/family oriented to hospital policies and general routines including ID bracelet, bed and alarms, visiting hours, pain management, procedures, bathroom and other care routines, personal items, smoking policy, room service/diet, and visiting hours. Information on how to activate the Rapid Response Team has been discussed. Patient/Family are encouraged to report perceived risks to care and to ask questions if they do not understand what they are told or what they should do.
[2022-10-29 01:04] VITALS: BP 147/89; PULSE 77; RESP 14; TEMP 36.5; O2SAT 97; BMI 35.4
[2022-10-29] MEDS: MORPHINE SULFATE (*CRX) 4 MG/ML INJ IV PUSH ×4 (01:18→21:52)
--- NOTE | 2022-10-29 01:21 | PM.IMHP ---
H&P: HPI History of Present Illness Date/Time: 10/29/22 01:21 Chief Complaint: Fall Narrative: This is a 62-year-old male [facility] resident past medical history significant for alcohol abuse, insulin-dependent diabetes mellitus, how chronic respiratory failure, major depressive disorder, tobacco dependence. Patient had a ground level fall and was unable to get up on his on laying on the ground for several hours before he was found. No loss of consciousness. Preliminary workup was significant for a right intertrochanteric fracture. EXAMINATION: CT brain wo con DATE: 10/28/2022 21:16 INDICATION: Fall head injury . TECHNIQUE: Computed tomography (CT) of the head was performed without intravenous contrast. The mA was adjusted according to patient size. Iterative reconstruction technique was employed. The dose-length product was 605.33 mGy-cm. COMPARISON: None. FINDINGS: No acute intracranial hemorrhage or extra-axial fluid collection. No hydrocephalus, mass, or herniation. No acute ischemic infarct. Unremarkable dural venous sinus attenuation. No acute osseous abnormality. Right maxillary air-fluid level. Mucosal thickening in the bilateral maxillary and ethmoid sinuses, the remaining aerated spaces are clear. Mild atrophy and moderate chronic white matter change. Atherosclerotic intracranial calcification. Left frontal encephalomalacia. IMPRESSION:? No acute intracranial process. Paranasal sinus findings may represent acute sinusitis in the appropriate clinical context EXAM:? XR hip RT 2V w AP pelvis DATE: 10/28/2022 20:57 HISTORY: pain status post fall . COMPARISON:? None available. FINDINGS:? Normal mineralization. Comminuted right intertrochanteric fracture with medial angulation. No lytic or blastic lesion. Moderate lumbar degenerative disc disease. Moderate bilateral hip osteoarthritis. Mild degenerative changes in the bilateral SI joints and pubic symphysis. No erosion or periosteal change. Soft tissues within normal limits. IMPRESSION: Comminuted, mildly angulated right intertrochanteric fracture. Review of Systems Review of Systems: Fall Constitutional: Constitutional: Denies chills, Denies fever(s), Reports frequent falls, Denies night sweats and Denies poor appetite Eyes: Eyes: Denies change in vision ENT: Denies dysphagia, Denies vertigo and Denies dizziness Cardiovascular: Cardiovascular: Denies chest pain at rest, Denies orthopnea and Denies paroxysmal nocturnal dyspnea Respiratory: Respiratory: Denies cough, Denies excessive phlegm production and Denies dyspnea on exertion Gastrointestinal: Gastrointestinal: Denies abdominal pain, Denies nausea and Denies vomiting Genitourinary: Genitourinary: Denies dysuria Musculoskeletal: Musculoskeletal: Reports arthralgias and Reports limited range of motion Integumentary/Breasts: Skin/Breast: Denies rash Neurologic: Denies focal weakness Psychiatric: Psychiatric: Reports no additional psychiatric complaints and Reports as per HPI Endocrine: Endocrine: Denies cold intolerance, Denies fatigue, Denies heat intolerance, Denies polyuria and Denies palpitations Hematologic/Lymphatic: Hematologic/Lymphatic: Reports no additional hematologic/lymphatic complaints and Reports as per HPI Allergic/Immunologic: Allergic/Immunologic: Reports no additional allergic/immunologic complaints and Reports as per HPI PMF Past Medical History Medical History (Updated 11/03/22 @ 14:09 by Brannon Robins MD) Alcohol abuse Chronic respiratory failure Closed intertrochanteric fracture of right femur Depression Eczema Epigastric pain Fall from ground level Major depressive disorder, recurrent, moderate 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
[2022-10-29 01:37] VITALS: O2SAT 97
[2022-10-29 02:57] LABS: Appearance Urine Clear (Clear); Bilirubin Urine Negative (Negative); Blood Urine Negative (Negative); Color Urine Yellow (Yellow); Glucose Urine UA 3+ mg/dL (Negative); Ketones Urine Negative (Negative); Leukocyte Esterase Ur Negative LEU/UL (Negative); Nitrate Urine Negative (Negative); Protein Urine Negative (Negative); Specific Grav Ur 1.014 (1.001-1.035)
[2022-10-29 03:03] LABS: Add Urine Microscopic? NO
[2022-10-29 06:00] VITALS: BP 146/76; PULSE 72; RESP 13; TEMP 36.4; O2SAT 96
[2022-10-29] MEDS: SODIUM CHLORIDE 0.9% IV 1,000 ML 125 ML IV CONT ×2 (06:52→16:19)
[2022-10-29 08:00] VITALS: O2SAT 96
[2022-10-29] MEDS: NICOTINE (*PBKC) 21 MG PATCH 1 PATCH TRANSDERM (08:29)
--- NOTE | 2022-10-29 09:21 | PM.CNOR ---
Assessment and Plan Assessment and plan (1) Closed intertrochanteric fracture of right femur: Qualifiers: Encounter type: initial encounter Fracture alignment: displaced Qualified Code(s): S72.141A - Displaced intertrochanteric fracture of right femur, initial encounter for closed fracture Code(s): S72.141A - Displaced intertrochanteric fracture of right femur, initial encounter for closed fracture Status: Acute Assessment and Plan: 62-year-old man assisted living resident found down on floor after a fall. Right hip intertrochanteric fracture. Indicated for intramedullary fixation when medically stable. Discussed nonoperative and operative treatment options with the patient. Risks and benefits of each as well as alternatives were reviewed. All of the patient's questions were answered. The risks of surgery reviewed including but not limited to: Neurovascular damage, wound complication, infection, blood clot, pulmonary embolus, stroke, myocardial infarction, and anesthetic risks up to and including . Continued pain and possible dysfunction were explained. Specific risks of the procedure including later recurrence of deformity. No guarantees were offered. If hardware used, discussed risk of failure/ breakage and possible need for removal. If complications occur, the patient understands the need for further treatment, possible further surgery. Patient verbalizes understanding and wishes to proceed. PLAN: Right hip open reduction internal fixation. History of Present Illness HPI Consult date: 10/29/22 Requesting physician: Brannon Florian MD Consult reason: fracture Chief complaint: Intertrochanteric Fracture of the Right Femur Narrative: 62-year-old gentleman assisted living resident found down on floor. Emergency room radiographs show a right hip fracture. Admitted for further care. Review of Systems Constitutional: Constitutional: Denies fever(s) Eyes: Eyes: Denies blurry vision ENT: Reports Normal hearing present Cardiovascular: Cardiovascular: Denies chest pain and Denies dyspnea Respiratory: Respiratory: Denies dyspnea and Denies wheezing Gastrointestinal: Gastrointestinal: Denies abdominal pain Genitourinary: Genitourinary: Denies urinary urgency Musculoskeletal: Musculoskeletal: Reports as per HPI and Denies numbness Integumentary/Breasts: Skin/Breast: Denies changing lesions and Denies sores Neurologic: Reports Normal hearing present, Denies behavioral changes, Denies confusion, Denies numbness and Denies convulsions Psychiatric: Psychiatric: Denies behavioral changes, Denies confusion and Denies hallucinations Endocrine: Endocrine: Denies heat intolerance Hematologic/Lymphatic: Hematologic/Lymphatic: Denies easy bleeding Allergic/Immunologic: Allergic/Immunologic: Denies wheezing PMFSH Past Medical History Medical History Alcohol abuse Depression Eczema 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 No natural teeth Skull fracture Type 2 diabetes, diet controlled Social History Social History Smoking packs per day: 1 Smoking cigarettes per day: 20.0 Years smoked: 18 Smoking pack-years: 18.00 Smoking status: Current every day smoker Tobacco type: cigarettes Smoking end date: 10/28/22 Alcohol intake: never Substance use: never Substance use type: does not use Gender identity (if verbalized by the patient): Male Sexual Orientation (if Verbalized by the Patient): Straight or Heterosexual Spiritual care concerns: No Meds Home Medications and Allergies Home Medications Medication Instructions Recorded Confirmed Type citalopram 20 mg tablet 20 mg PO DAILY #30 tabs 02/02/22 10/29/22 Rx omeprazole 20 mg capsule,delayed See Rx Instructions .Route 08/27/22 10/29/22 Rx release .COMPLEX #30 caps atorvastatin 10 mg tablet 10 mg PO JOSE JUAN
[2022-10-29] MEDS: ATORVASTATIN 10 MG TABLET PO (11:00)
[2022-10-29] MEDS: risperiDONE 1 MG TABLET 2 MG PO ×2 (11:00→16:20)
[2022-10-29] MEDS: CITALOPRAM HYDROBROMIDE 20 MG TABLET PO (11:00)
--- NOTE | 2022-10-29 11:17 | PM.IMPN ---
Progress Note: A&P Assessment and Plan (1) Closed intertrochanteric fracture of right femur: Qualifiers: Encounter type: initial encounter Fracture alignment: displaced Qualified Code(s): S72.141A - Displaced intertrochanteric fracture of right femur, initial encounter for closed fracture Code(s): S72.141A - Displaced intertrochanteric fracture of right femur, initial encounter for closed fracture Status: Acute (2) Fall from ground level: Code(s): W18.30XA - Fall on same level, unspecified, initial encounter Status: Acute (3) Type 2 diabetes mellitus without complications: Code(s): E11.9 - Type 2 diabetes mellitus without complications Status: Acute (4) Alcohol abuse: Code(s): F10.10 - Alcohol abuse, uncomplicated Status: Acute Subjective Date/time seen: 10/29/22 11:17 Interval history: Pain controlled Exam Const: General: confusion Orientation/consciousness: confusion HENMT: Head: normal to inspection, normocephalic and atraumatic Eyes: Conjunctivae: conjunctivae normal Sclera: sclerae normal Neck: Neck: supple and nontender Chest: Chest palpation & inspection: normal inspection of the chest Resp: Effort & Inspection: normal respiratory effort and no audible wheezes Cardio: Rate: regular rate Rhythm: regular rhythm : General: Yes deferred Skin: General skin exam: no rashes or lesions noted Neuro: General: confusion Cranial nerves: Yes Normal hearing present Extrem: General: capillary refill normal Right upper extremity: normal to inspection Left upper extremity: normal to inspection Right lower extremity: hip/thigh Details: tenderness Location: of the hip Location: laterally and swelling Location: at the hip ( mild), ankle ( able to actively flex and extend ankle) Details: no tenderness and foot Details: normal capillary refill, toes with normal ROM, vascular exam Details: dorsalis pedis pulse present and normal capillary refill and motor-sensory exam Details: light-touch normal Location: in all toes; no tenderness Left lower extremity: normal to inspection, hip/thigh Details: no tenderness and no swelling, lower leg, ankle (no calf tenderness) Details: normal ROM; no tenderness and foot Details: normal capillary refill, vascular exam Details: dorsalis pedis pulse present and normal capillary refill and motor-sensory exam light-touch normal in all toes Objective Data Vital Signs Vital Signs: Vital Signs - 24 hr 10/28/22 20:14 10/28/22 21:18 10/28/22 21:20 Temperature 98.5 F Pulse Rate 89 Respiratory Rate 25 H Blood Pressure 150/85 H Pulse Oximetry 92 84 L 95 Oxygen Delivery Room Air Nasal Cannula Oxygen Flow Rate 2 10/28/22 20:16 10/28/22 20:31 10/28/22 21:31 Temperature Pulse Rate 90 85 86 Respiratory Rate 47 H 29 H 31 H Blood Pressure 150/85 H 146/87 H 161/91 H Pulse Oximetry 93 90 97 Oxygen Delivery Oxygen Flow Rate 10/28/22 21:58 10/28/22 22:01 10/28/22 22:31 Temperature Pulse Rate 82 81 81 Respiratory Rate 24 H 29 H 25 H Blood Pressure 127/76 133/76 124/74 Pulse Oximetry 96 96 95 Oxygen Delivery Oxygen Flow Rate 10/28/22 23:01 10/28/22 23:31 10/29/22 01:04 Temperature 97.7 F Pulse Rate 83 88 77 Respiratory Rate 26 H 26 H 14 Blood Pressure 132/77 134/79 147/89 H Pulse Oximetry 96 97 97 Oxygen Delivery Oxygen Flow Rate 10/29/22 01:37 10/29/22 06:00 10/29/22 08:00 Temperature 97.5 F L Pulse Rate 72 Respiratory Rate 13 Blood Pressure 146/76 H Pulse Oximetry 97 96 96 Oxygen Delivery Nasal Cannula Nasal Cannula Oxygen Flow Rate 2 2 10/29/22 08:00 Temperature Pulse Rate Respiratory Rate Blood Pressure Pulse Oximetry 96 Oxygen Delivery Nasal Cannula Oxygen Flow Rate 2 Intake/Output Intake/Output: Intake & Output 10/26/22 10/27/22 10/28/22 10/29/22 23:59 23:59 23:59 23:59 Intake Total 1000 Output Total 2800 Balance -
[2022-10-29 14:00] VITALS: BP 112/66; PULSE 73; RESP 20; TEMP 37.4; O2SAT 99
[2022-10-29] MEDS: MIRTAZAPINE 15 MG TABLET PO (21:48)
[2022-10-29] MEDS: QUEtiapine FUMARATE 100 MG TABLET 300 MG PO (21:48)
[2022-10-29 22:00] VITALS: BP 114/65; PULSE 75; RESP 18; TEMP 37.6; O2SAT 92
--- NOTE | 2022-10-29 23:26 | PC.NURSE ---
Paper documentation exists on this patient due to [facility] downtime on 10/29/22 from 1930 to 2224 medications given that time have been maually entered for when given [] .
[2022-10-30] VITALS (14 sets, daily range): BP systolic 102–150; BP diastolic 67–89; PULSE 75–91; RESP 12–18; TEMP 36.1–36.9; O2SAT 86–97
[2022-10-30] MEDS: SODIUM CHLORIDE 0.9% IV 1,000 ML 125 ML IV CONT (03:28)
[2022-10-30 09:14] LABS: Basophils Percent Auto 0.3 % (0.2-1.2); Eosinophils Absolute Auto 0.1 K/mm3 (0-0.3); Eosinophils Percent Auto 0.9 % (0-4.4); Hematocrit 41.1 % (42.0-52.0); Hemoglobin 13.1 g/dL (14.0-18.0); Immature Granulocyte Absolute 0.05 K/mm3 (0.00-0.031); Immature Granulocyte Percent A 0.4 % (0-0.5); Lymphocytes Absolute Auto 0.67 K/mm3 (0.9-3.2); Lymphocytes Percent Auto 5.8 % (18.3-44.2); Mean Corpuscular HGB Conc 31.9 g/dl (32-36); Mean Corpuscular Hemoglobin 31.3 pg (26-34); Mean Corpuscular Volume 98.1 fl (80-100); Mean Platelet Volume 9.3 fl (7.4-10.4); Monocytes Absolute Auto 0.8 K/mm3 (0.1-0.6); Monocytes Percent Auto 6.5 % (2.6-8.5); Neutrophils Percent Auto 86.1 % (45.5-73.1); Platelet Count Result 194 k/mm3 (150-375); Red Blood Count 4.19 M/mm3 (4.6-6.20); Red Cell Distribution Width 13.2 % (11.5-14.5); White Blood Count 11.6 K/mm3 (4.5-10.0)
[2022-10-30] MEDS: MORPHINE SULFATE (*CRX) 4 MG/ML INJ IV PUSH (09:27)
[2022-10-30] MEDS: risperiDONE 1 MG TABLET 2 MG PO ×2 (09:29→16:45)
[2022-10-30] MEDS: NICOTINE (*PBKC) 21 MG PATCH 1 PATCH TRANSDERM (09:29)
[2022-10-30] MEDS: CITALOPRAM HYDROBROMIDE 20 MG TABLET PO (09:30)
[2022-10-30] MEDS: ATORVASTATIN 10 MG TABLET PO (09:30)
[2022-10-30 09:41] LABS: Anion Gap 1 mmol/L (8-16); Blood Urea Nitrogen 7 mg/dL (9-20); Calcium 8.4 mg/dL (8.4-10.2); Carbon Dioxide 31 mmol/L (22-30); Chloride 101 mmol/L (98-107); Estimated CRCL calculation 90 ml/min; Estimated Glomerular Filt Rate > 60; Glucose 195 mg/dL (65-110); Potassium 3.9 mmol/L (3.4-5.0); Sodium 133 mmol/L (137-145)
--- NOTE | 2022-10-30 11:28 | PM.IMPN ---
Progress Note: A&P Assessment and Plan (1) Closed intertrochanteric fracture of right femur: Qualifiers: Encounter type: initial encounter Fracture alignment: displaced Qualified Code(s): S72.141A - Displaced intertrochanteric fracture of right femur, initial encounter for closed fracture Code(s): S72.141A - Displaced intertrochanteric fracture of right femur, initial encounter for closed fracture Status: Acute (2) Fall from ground level: Code(s): W18.30XA - Fall on same level, unspecified, initial encounter Status: Acute (3) Type 2 diabetes mellitus without complications: Code(s): E11.9 - Type 2 diabetes mellitus without complications Status: Acute (4) Alcohol abuse: Code(s): F10.10 - Alcohol abuse, uncomplicated Status: Acute Subjective Date/time seen: 10/30/22 11:28 Interval history: no complaints Exam Const: General: confusion Orientation/consciousness: confusion HENMT: Head: normal to inspection, normocephalic and atraumatic Eyes: Conjunctivae: conjunctivae normal Sclera: sclerae normal Neck: Neck: supple and nontender Chest: Chest palpation & inspection: normal inspection of the chest Resp: Effort & Inspection: normal respiratory effort and no audible wheezes Cardio: Rate: regular rate Rhythm: regular rhythm : General: Yes deferred Skin: General skin exam: no rashes or lesions noted Neuro: General: confusion Cranial nerves: Yes Normal hearing present Extrem: General: capillary refill normal Right upper extremity: normal to inspection Left upper extremity: normal to inspection Right lower extremity: hip/thigh Details: tenderness Location: of the hip Location: laterally and swelling Location: at the hip ( mild), ankle ( able to actively flex and extend ankle) Details: no tenderness and foot Details: normal capillary refill, toes with normal ROM, vascular exam Details: dorsalis pedis pulse present and normal capillary refill and motor-sensory exam Details: light-touch normal Location: in all toes; no tenderness Left lower extremity: normal to inspection, hip/thigh Details: no tenderness and no swelling, lower leg, ankle (no calf tenderness) Details: normal ROM; no tenderness and foot Details: normal capillary refill, vascular exam Details: dorsalis pedis pulse present and normal capillary refill and motor-sensory exam light-touch normal in all toes Objective Data Vital Signs Vital Signs: Vital Signs - 24 hr 10/29/22 14:00 10/29/22 22:00 10/30/22 05:13 Temperature 99.3 F 99.6 F 97.1 F L Pulse Rate 73 75 83 Respiratory Rate 20 18 16 Blood Pressure 112/66 114/65 138/69 Pulse Oximetry 99 92 97 Intake/Output Intake/Output: Intake & Output 10/27/22 10/28/22 10/29/22 10/30/22 23:59 23:59 23:59 23:59 Intake Total 1999 1000 Output Total 3350 200 Balance -1350 800 Meds/Results Medications: Active Medications Generic Name Dose Route Start Last Admin Trade Name Freq PRN Reason Stop Dose Admin Atorvastatin Calcium 10 mg 10/29/22 09:00 10/30/22 09:30 Atorvastatin 10 Mg Tablet PO 10 mg DAILY MODESTO Administration Citalopram Hydrobromide 20 mg 10/29/22 09:00 10/30/22 09:30 Citalopram Hydrobromide 20 Mg Tablet PO 20 mg DAILY MODESTO Administration Sodium Chloride 1,000 mls @ 125 mls/hr 10/28/22 21:40 10/30/22 03:28 Normal Saline Iv IV CONT 125 mls/hr .Q8H MODESTO Administration Mirtazapine 15 mg 10/29/22 21:00 10/29/22 21:48 Mirtazapine 15 Mg Tablet PO 15 mg HS MODESTO Administration Morphine Sulfate 4 mg 10/28/22 21:40 10/30/22 09:27 Morphine Sulfate (*Crx) 4 Mg/Ml Inj IV PUSH 4 mg Q2H PRN Administration Pain Rated 7-10 Nicotine 1 patch 10/29/22 09:00 10/30/22 09:29 Nicotine (*Pbkc) 21 Mg Patch TRANSDERM 1 patch QAM MODESTO Administration Ondansetron HCl 4 mg 10/28/22 21:40 Ondansetron Inj 4 Mg/2 Ml Vial IV PUSH Q4H PRN Nausea Quetiapine
--- NOTE | 2022-10-30 12:06 | PC.NURSE ---
Pt transported to surgery in bed by RN.
--- NOTE | 2022-10-30 12:35 | WPDANESEPP ---
Anes - Eval Pre Procedure Procedure: Operation Date: 10/30/22 13:30 Proposed Procedures p Right Intertrochanteric Nail - Gael Kirkpatrick MD Date/Time: 10/30/22 12:35 Surgeon: Kaya Pre Op Diagnosis: Intertrochanteric Fracture of the Right Femur Patient Data Age: 62 Gender: M Height: 1.55 m Weight: 85.2 kg Last Vital Signs Temp 97.1 F L 10/30/22 05:13 Pulse 83 10/30/22 05:13 Resp 16 10/30/22 05:13 BP 138/69 10/30/22 05:13 Pulse Ox 93 10/30/22 09:30 O2 Del Method Nasal Cannula 10/30/22 09:30 O2 Flow Rate 2 10/30/22 09:30 Allergies Allergy/AdvReac Type Severity Reaction Status Date / Time No Known Allergies Allergy Verified 10/28/22 20:20 Home Medications Medication Instructions Recorded Confirmed Type citalopram 20 mg tablet 20 mg PO DAILY #30 tabs 02/02/22 10/29/22 Rx omeprazole 20 mg capsule,delayed See Rx Instructions .Route 08/27/22 10/29/22 Rx release .COMPLEX #30 caps atorvastatin 10 mg tablet 10 mg PO DAILY 10/29/22 10/29/22 History metformin 1,000 mg tablet 1,000 mg PO DAILY 10/29/22 10/29/22 History mirtazapine 15 mg tablet 15 mg PO HS 10/29/22 10/29/22 History nicotine 21 mg/24 hr daily 1 patch transdermal DAILY 10/29/22 10/29/22 History transdermal patch quetiapine 300 mg tablet,extended 300 mg PO HS 10/29/22 10/29/22 History release 24 hr risperidone 1 mg tablet 2 mg PO BID 10/29/22 10/29/22 History Laboratory Tests 10/30/22 08:55 WBC 11.6 H K/mm3 (4.5-10.0) RBC 4.19 L M/mm3 (4.6-6.20) Hgb 13.1 L g/dL (14.0-18.0) Hct 41.1 L % (42.0-52.0) MCV 98.1 fl (80-100) MCH 31.3 pg (26-34) MCHC 31.9 L g/dl (32-36) RDW 13.2 % (11.5-14.5) Plt Count 194 k/mm3 (150-375) MPV 9.3 fl (7.4-10.4) Immature Gran % (Auto) 0.4 % (0-0.5) Neut % (Auto) 86.1 H % (45.5-73.1) Lymph % (Auto) 5.8 L % (18.3-44.2) [place] % (Auto) 6.5 % (2.6-8.5) Eos % (Auto) 0.9 % (0-4.4) Baso % (Auto) 0.3 % (0.2-1.2) Lymph # (Auto) 0.67 L K/mm3 (0.9-3.2) [place] # (Auto) 0.8 H K/mm3 (0.1-0.6) Eos # (Auto) 0.1 K/mm3 (0-0.3) Baso # (Auto) 0.0 K/mm3 (0.0-0.1) Abs Immat Gran (auto) 0.05 H K/mm3 (0.00-0.031) Absolute Neuts (auto) 10.0 H K/mm3 (1.3-6.7) Absolute Nucleated RBC 0.0 K/mm3 (0.0-0.012) Nucleated RBC % 0.0 % (0.0-0.2) Sodium 133 L mmol/L (137-145) Potassium 3.9 mmol/L (3.4-5.0) Chloride 101 mmol/L (98-107) Carbon Dioxide 31 H mmol/L (22-30) Anion Gap 1 L mmol/L (8-16) BUN 7 L mg/dL (9-20) Creatinine 0.70 mg/dL (0.7-1.3) Estim Creat Clear Calc 90 ml/min Estimated GFR > 60 (59 - ) Glucose 195 H mg/dL (65-110) Calcium 8.4 mg/dL (8.4-10.2) Patient hx anesthesia problems: none Family hx anesthesia problems: none Results Review: All pre-operative results and documents have been reviewed as part of the pre-operative evaluation. 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
[2022-10-30] MEDS: ACETAMINOPHEN 500 MG TABLET 1000 MG PO (12:50)
[2022-10-30] MEDS: TRANEXAMIC ACID 1,000MG/ISO100 1,000 MG/100 ML BAG 200 MG IVPB (12:50)
--- NOTE | 2022-10-30 13:22 | WPDANESEPPF ---
Anes - Initial Pre Proc Eval Procedure: Operation Date: 10/30/22 13:30 Proposed Procedures p Right Intertrochanteric Nail - Gael Kirkpatrick MD Date/Time: 10/30/22 13:22 Surgeon: Jacob Gee MD Pre Op Diagnosis: Intertrochanteric Fracture of the Right Femur Patient Data Age: 62 Gender: M Height: 1.55 m Weight: 85.2 kg Last Vital Signs Temp 97.1 F L 10/30/22 05:13 Pulse 83 10/30/22 05:13 Resp 16 10/30/22 05:13 BP 138/69 10/30/22 05:13 Pulse Ox 93 10/30/22 09:30 O2 Del Method Nasal Cannula 10/30/22 09:30 O2 Flow Rate 2 10/30/22 09:30 Allergies Allergy/AdvReac Type Severity Reaction Status Date / Time No Known Allergies Allergy Verified 10/30/22 12:56 Home Medications Medication Instructions Recorded Confirmed Type citalopram 20 mg tablet 20 mg PO DAILY #30 tabs 02/02/22 10/29/22 Rx omeprazole 20 mg capsule,delayed See Rx Instructions .Route 08/27/22 10/29/22 Rx release .COMPLEX #30 caps atorvastatin 10 mg tablet 10 mg PO DAILY 10/29/22 10/29/22 History metformin 1,000 mg tablet 1,000 mg PO DAILY 10/29/22 10/29/22 History mirtazapine 15 mg tablet 15 mg PO HS 10/29/22 10/29/22 History nicotine 21 mg/24 hr daily 1 patch transdermal DAILY 10/29/22 10/29/22 History transdermal patch quetiapine 300 mg tablet,extended 300 mg PO HS 10/29/22 10/29/22 History release 24 hr risperidone 1 mg tablet 2 mg PO BID 10/29/22 10/29/22 History Laboratory Tests 10/30/22 08:55 WBC 11.6 H K/mm3 (4.5-10.0) RBC 4.19 L M/mm3 (4.6-6.20) Hgb 13.1 L g/dL (14.0-18.0) Hct 41.1 L % (42.0-52.0) MCV 98.1 fl (80-100) MCH 31.3 pg (26-34) MCHC 31.9 L g/dl (32-36) RDW 13.2 % (11.5-14.5) Plt Count 194 k/mm3 (150-375) MPV 9.3 fl (7.4-10.4) Immature Gran % (Auto) 0.4 % (0-0.5) Neut % (Auto) 86.1 H % (45.5-73.1) Lymph % (Auto) 5.8 L % (18.3-44.2) [place] % (Auto) 6.5 % (2.6-8.5) Eos % (Auto) 0.9 % (0-4.4) Baso % (Auto) 0.3 % (0.2-1.2) Lymph # (Auto) 0.67 L K/mm3 (0.9-3.2) [place] # (Auto) 0.8 H K/mm3 (0.1-0.6) Eos # (Auto) 0.1 K/mm3 (0-0.3) Baso # (Auto) 0.0 K/mm3 (0.0-0.1) Abs Immat Gran (auto) 0.05 H K/mm3 (0.00-0.031) Absolute Neuts (auto) 10.0 H K/mm3 (1.3-6.7) Absolute Nucleated RBC 0.0 K/mm3 (0.0-0.012) Nucleated RBC % 0.0 % (0.0-0.2) Sodium 133 L mmol/L (137-145) Potassium 3.9 mmol/L (3.4-5.0) Chloride 101 mmol/L (98-107) Carbon Dioxide 31 H mmol/L (22-30) Anion Gap 1 L mmol/L (8-16) BUN 7 L mg/dL (9-20) Creatinine 0.70 mg/dL (0.7-1.3) Estim Creat Clear Calc 90 ml/min Estimated GFR > 60 (59 - ) Glucose 195 H mg/dL (65-110) Calcium 8.4 mg/dL (8.4-10.2) Patient hx anesthesia problems: none Family hx anesthesia problems: none Results Review: All pre-operative results and documents have been reviewed as part of the pre-operative evaluation. 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
--- NOTE | 2022-10-30 13:52 | WPDHPUPDATE1 ---
History and Physical Update Update Date/Time: 10/30/22 13:52 History and Physical has been reviewed, including an updated exam of the patient. There are NO changes in the patient's condition. Risks, benefits, and alternatives have been discussed and questions answered. Patient agrees to proceed with procedure.
[2022-10-30] MEDS: ceFAZolin 2 GM/D5W 50 ML 2 GM/50 ML BAG IVPB (13:57)
[2022-10-30] MEDS: BUPIVACAINE/EPINEPHRINE 0.5% 10 ML VIAL 20 ML INFILTRATE (14:29)
[2022-10-30] MEDS: LACTATED RINGERS 1,000 ML 30 ML IV CONT (15:05)
--- NOTE | 2022-10-30 15:13 | P.OP_ITS ---
Procedure Note - Detailed Date of Procedure 10/30/22 Pre-op Diagnosis Intertrochanteric Fracture of the Right Femur Post-op Diagnosis Same Procedure Performed RT femur intramedullary nail, hip screw Surgeon Gael Kirkpatrick MD [employer] 1st clerical assistant Anesthesia General Indications 62-year-old fell and sustained a right hip intertrochanteric fracture. Desires operative treatment. Description of Procedure After informed consent the operative extremity was marked in the preoperative holding area. Patient received intravenous antibiotics. The patient was taken to the operative room, placed in the supine position, general anesthesia induced by the anesthesia team, and was placed on a fracture table with longitudinal traction applied to the right leg. The non operative leg was extended out of the field. The hip fracture was reduced to near anatomic position and verified with image intensification. A time-out was performed confirming the patient, site of the surgery and plan. The right lower extremity was prepped and draped sterilely from the knee to the iliac crest region using a ChloraPrep skin solution. Incision was made just proximal to greater trochanter down to the subcutaneous tissues. Hemostasis controlled with electrocautery. Blunt dissection through the fascia to the tip of the greater trochanter. A starter awl was placed at the tip of the greater trochanter into the medullary canal of the femur. This was checked with image intensification and was in good position. Intramedullary guide lary positioned. A one-step hand reaming done proximally. Intramedullary canal was reamed with a 12.5 millimeter flexible reamer. Measuring was then performed off of the guide lary. Neck angle selected off of preoperative radiographs temp plating. 125 degree 11 X 360mm Nail opened on the back table and assembled. This was then inserted over the guide lary to the correct depth. Guide lary removed. Lag screw was then placed with a stab incision over the lateral femur using a 10 blade knife. Blunt dissection down to the lateral side of the bone. Soft tissue protectors placed. Guide pin placed in the center center position of the femoral head and measured. 95 millimeter x 10.5 millimeter lag screw placed to correct depth and verified with image intensification. Traction then released from the leg and compression of the fracture performed with the external compression device. Proximal locking screw placed. Distal locking of the nail Then performed. Image intensification used to assist in positioning the drill. Drill measure and appropriate size screw placed to lock the nail. 5 mm x 38 mm locking screw placed. Final image intensification confirm reduction of the fracture and placement of the hardware. Wounds then thoroughly irrigated with antibiotic solution. Fascia repaired with 0 Vicryl interrupted suture. Subcutaneous tissue repaired with 2 O Vicryl subcuticular stitch and 3 0 Monocryl interrupted stitch and skin repaired with Dermabond. Sterile dressings applied. Patient then awoke from anesthesia, extubated taken to recovery room stable condition. All sponge, needle and instrument counts correct at the end the case. Implants Arthrex 125 degree x 11 mm x 360 mm nail with 90 lag screw 38mm distal locking screw Estimated Blood Loss -50.0 Tourniquet Time 0 Urine Output 2,300 Drains No Packing No Pathology None sent Complications None Condition Stable Disposition PACU [facility] Billing Surgery - Charge Forward: Surgery Billing ([id number])
[2022-10-30 15:22] LABS: Glucose Point of Care 177 mg/dl (65-105)
--- NOTE | 2022-10-30 16:30 | PC.NURSE ---
Patient returned to room 311. Family at bedside. Patient denies nausea, dizzyness, and pain.
[2022-10-30] MEDS: SODIUM CHLORIDE 0.9% IV 1,000 ML 75 ML IV CONT (17:40)
[2022-10-30] MEDS: SENNA/DOCUSATE SODIUM TABLET 2 TAB PO (17:41)
[2022-10-30] MEDS: ceFAZolin 1 GM/NS 50 ML 1 GM/50 ML BAG IVPB (20:32)
[2022-10-30] MEDS: MIRTAZAPINE 15 MG TABLET PO (20:32)
[2022-10-30] MEDS: QUEtiapine FUMARATE 100 MG TABLET 300 MG PO (20:32)
[2022-10-31] VITALS (8 sets, daily range): BP systolic 100–157; BP diastolic 59–83; PULSE 65–86; RESP 14–16; TEMP 36.2–36.9; O2SAT 92–98
[2022-10-31] MEDS: ceFAZolin 1 GM/NS 50 ML 1 GM/50 ML BAG IVPB ×2 (04:02→13:04)
[2022-10-31 06:29] LABS: Basophils Percent Auto 0.1 % (0.2-1.2); Hematocrit 40.3 % (42.0-52.0); Hemoglobin 13.4 g/dL (14.0-18.0); Immature Granulocyte Absolute 0.05 K/mm3 (0.00-0.031); Immature Granulocyte Percent A 0.4 % (0-0.5); Lymphocytes Absolute Auto 0.58 K/mm3 (0.9-3.2); Lymphocytes Percent Auto 5.2 % (18.3-44.2); Mean Corpuscular HGB Conc 33.3 g/dl (32-36); Mean Corpuscular Hemoglobin 31.5 pg (26-34); Mean Corpuscular Volume 94.6 fl (80-100); Mean Platelet Volume 9.5 fl (7.4-10.4); Monocytes Absolute Auto 0.8 K/mm3 (0.1-0.6); Monocytes Percent Auto 6.8 % (2.6-8.5); Neutrophils Absolute Auto 9.8 K/mm3 (1.3-6.7); Neutrophils Percent Auto 87.5 % (45.5-73.1); Platelet Count Result 173 k/mm3 (150-375); Red Blood Count 4.26 M/mm3 (4.6-6.20); Red Cell Distribution Width 12.6 % (11.5-14.5); White Blood Count 11.2 K/mm3 (4.5-10.0)
[2022-10-31 06:39] LABS: Anion Gap 6 mmol/L (8-16); Blood Urea Nitrogen 7 mg/dL (9-20); Calcium 8.6 mg/dL (8.4-10.2); Carbon Dioxide 30 mmol/L (22-30); Chloride 98 mmol/L (98-107); Estimated CRCL calculation 103 ml/min; Estimated Glomerular Filt Rate > 60; Glucose 218 mg/dL (65-110); Potassium 4.1 mmol/L (3.4-5.0); Sodium 134 mmol/L (137-145)
[2022-10-31] MEDS: MORPHINE SULFATE (*CRX) 4 MG/ML INJ IV PUSH ×2 (08:55→20:42)
[2022-10-31] MEDS: polyethylene glycoL 3350 17 GM POWD.PACK PO (08:56)
[2022-10-31] MEDS: SENNA/DOCUSATE SODIUM TABLET 2 TAB PO ×2 (09:16→17:04)
[2022-10-31] MEDS: ATORVASTATIN 10 MG TABLET PO (09:16)
[2022-10-31] MEDS: risperiDONE 1 MG TABLET 2 MG PO ×2 (09:17→17:04)
[2022-10-31] MEDS: ASPIRIN 325 MG ENTERIC TABLET PO ×2 (09:19→20:37)
[2022-10-31] MEDS: CITALOPRAM HYDROBROMIDE 20 MG TABLET PO (09:19)
--- NOTE | 2022-10-31 10:53 | P.PNAN_ITS ---
Anes - Prog Note Post-Op Date/Time: 10/31/22 10:53 Vital Signs: Last Vital Signs Temp 36.2 C L 10/31/22 04:49 Pulse 65 10/31/22 04:49 Resp 14 10/31/22 04:49 BP 118/77 10/31/22 04:49 Pulse Ox 98 10/31/22 04:49 O2 Del Method Nasal Cannula 10/31/22 08:11 O2 Flow Rate 6 10/31/22 08:11 FiO2 40 10/30/22 20:45 Pain Score (VAS): 0 I/O: Intake & Output 10/30/22 10/31/22 10/31/22 23:59 07:59 15:59 Intake Total 990 50 Output Total 2600 Balance 990 -2550 Laboratory Tests 10/31/22 06:05 10/31/22 06:05 10/30/22 10/31/22 15:18 06:05 WBC 11.2 H RBC 4.26 L Hgb 13.4 L Hct 40.3 L MCV 94.6 MCH 31.5 MCHC 33.3 RDW 12.6 Plt Count 173 MPV 9.5 Immature Gran % (Auto) 0.4 Neut % (Auto) 87.5 H Lymph % (Auto) 5.2 L [place] % (Auto) 6.8 Eos % (Auto) 0.0 Baso % (Auto) 0.1 L Lymph # (Auto) 0.58 L [place] # (Auto) 0.8 H Eos # (Auto) 0.0 Baso # (Auto) 0.0 Abs Immat Gran (auto) 0.05 H Absolute Neuts (auto) 9.8 H Absolute Nucleated RBC 0.0 Nucleated RBC % 0.0 Sodium 134 L Potassium 4.1 Chloride 98 Carbon Dioxide 30 Anion Gap 6 L BUN 7 L Creatinine 0.60 L Estim Creat Clear Calc 103 Estimated GFR > 60 Glucose 218 H POC Capillary Glucose 177 H Calcium 8.6 Patient Feedback: Patient satisfied with anesthetic care.
--- NOTE | 2022-10-31 10:56 | PM.IMPN ---
Progress Note: A&P Assessment and Plan (1) Closed intertrochanteric fracture of right femur: Qualifiers: Encounter type: initial encounter Fracture alignment: displaced Qualified Code(s): S72.141A - Displaced intertrochanteric fracture of right femur, initial encounter for closed fracture Code(s): S72.141A - Displaced intertrochanteric fracture of right femur, initial encounter for closed fracture Status: Acute Assessment and Plan: sp IM nail by ortho pt/ot (2) Fall from ground level: Code(s): W18.30XA - Fall on same level, unspecified, initial encounter Status: Acute Assessment and Plan: pt ot (3) Type 2 diabetes mellitus without complications: Code(s): E11.9 - Type 2 diabetes mellitus without complications Status: Acute Assessment and Plan: alexander gleason (4) Alcohol abuse: Code(s): F10.10 - Alcohol abuse, uncomplicated Status: Acute Assessment and Plan: no signs of withdrawal monitor Subjective Date/time seen: 10/31/22 10:56 Interval history: no new complaints Exam Const: General: confusion Orientation/consciousness: confusion HENMT: Head: normal to inspection, normocephalic and atraumatic Eyes: Conjunctivae: conjunctivae normal Sclera: sclerae normal Neck: Neck: supple and nontender Chest: Chest palpation & inspection: normal inspection of the chest Resp: Effort & Inspection: normal respiratory effort and no audible wheezes Cardio: Rate: regular rate Rhythm: regular rhythm : General: Yes deferred Skin: General skin exam: no rashes or lesions noted Neuro: General: confusion Cranial nerves: Yes Normal hearing present Extrem: General: capillary refill normal Right upper extremity: normal to inspection Left upper extremity: normal to inspection Right lower extremity: hip/thigh Details: tenderness Location: of the hip Location: laterally and swelling Location: at the hip ( mild), ankle ( able to actively flex and extend ankle) Details: no tenderness and foot Details: normal capillary refill, toes with normal ROM, vascular exam Details: dorsalis pedis pulse present and normal capillary refill and motor-sensory exam Details: light-touch normal Location: in all toes; no tenderness Left lower extremity: normal to inspection, hip/thigh Details: no tenderness and no swelling, lower leg, ankle (no calf tenderness) Details: normal ROM; no tenderness and foot Details: normal capillary refill, vascular exam Details: dorsalis pedis pulse present and normal capillary refill and motor-sensory exam light-touch normal in all toes Objective Data Vital Signs Vital Signs: Vital Signs - 24 hr 10/30/22 15:05 10/30/22 15:20 10/30/22 15:35 Temperature 97.0 F L Pulse Rate 75 76 83 Respiratory Rate 14 16 18 Blood Pressure 123/72 136/78 150/89 H Pulse Oximetry 92 94 91 Oxygen Delivery Simple Face Mask Simple Face Mask Nasal Cannula Oxygen Flow Rate 8 8 3 Fraction of Inspired Oxygen 10/30/22 15:50 10/30/22 16:05 10/30/22 16:15 Temperature Pulse Rate 79 77 79 Respiratory Rate 12 12 18 Blood Pressure 137/75 139/76 131/74 Pulse Oximetry 91 91 91 Oxygen Delivery Nasal Cannula Nasal Cannula Nasal Cannula Oxygen Flow Rate 3 3 3 Fraction of Inspired Oxygen 10/30/22 17:05 10/30/22 17:25 10/30/22 17:55 Temperature 97.9 F 97.9 F 97.9 F Pulse Rate 91 89 85 Respiratory Rate 16 16 14 Blood Pressure 132/73 128/82 132/70 Pulse Oximetry 86 L 90 96 Oxygen Delivery Oxygen Flow Rate Fraction of Inspired Oxygen 10/30/22 18:55 10/30/22 20:45 10/30/22 20:00 Temperature 98.5 F 97.6 F Pulse Rate 91 77 86 Respiratory Rate 16 18 16 Blood Pressure 102/67 129/80 Pulse Oximetry 94 93 95 Oxygen Delivery Venturi Mask Oxygen Flow Rate 12 Fraction of Inspired Oxygen 40 10/30/22 20:00 10/31/22 00:00 10/31/22 04:49 Temperature 97.4 F L 97.2 F L Pulse Rate 77 70 65 Respiratory Rate 18 16 14 Blood Pr
--- NOTE | 2022-10-31 12:41 | PM.PNORT ---
Progress Note: A&P Assessment and Plan (1) Closed intertrochanteric fracture of right femur: Qualifiers: Encounter type: subsequent encounter Fracture alignment: displaced Fracture healing: with routine healing Qualified Code(s): S72.141D - Displaced intertrochanteric fracture of right femur, subsequent encounter for closed fracture with routine healing Code(s): S72.141A - Displaced intertrochanteric fracture of right femur, initial encounter for closed fracture Status: Acute Assessment and Plan: Postop day 1 right hip intramedullary hip screw. Patient pain cruz is much improved. He sitting up, tolerating regular diet. Pain controlled. PT/ OT with weight-bearing as tolerated. Okay for transfer when medically stable. Follow up with Orthopedics in 6 weeks. Subjective Subjective Date/Time Seen: 10/31/22 12:41 Post Op day: 1 Principal diagnosis: Right hip subtrochanteric fracture Interval history: patient awake and alert. Sitting up in bed enjoying lunch. States hip pain much improved. Was up in chair Earlier. Exam Const: General: comfortable; No acute distress Resp: Effort & Inspection: normal respiratory effort and no audible wheezes Extrem: Right lower extremity: lower leg ( Negative Homans sign), ankle Details: normal ROM ( dorsiflexion and plantar flexion intact) and foot Details: vascular exam Details: dorsalis pedis pulse present and normal capillary refill, tendon exam Details: active flexion normal and active extension normal and motor-sensory exam Details: light-touch normal Location: in all toes; no edema Left lower extremity: normal to inspection, ankle Details: normal ROM and foot Details: vascular exam Details: dorsalis pedis pulse present and normal capillary refill and motor-sensory exam light-touch normal in all toes; no edema Other: Right hip incision clean and dry with dressing. Distally moves toes. Good sensation to touch. Negative Homans sign. Objective Data Vital Signs Vital Signs: Vital Signs - 24 hr 10/30/22 15:05 10/30/22 15:20 10/30/22 15:35 Temperature 97.0 F L Pulse Rate 75 76 83 Respiratory Rate 14 16 18 Blood Pressure 123/72 136/78 150/89 H Pulse Oximetry 92 94 91 Oxygen Delivery Simple Face Mask Simple Face Mask Nasal Cannula Oxygen Flow Rate 8 8 3 Fraction of Inspired Oxygen 10/30/22 15:50 10/30/22 16:05 10/30/22 16:15 Temperature Pulse Rate 79 77 79 Respiratory Rate 12 12 18 Blood Pressure 137/75 139/76 131/74 Pulse Oximetry 91 91 91 Oxygen Delivery Nasal Cannula Nasal Cannula Nasal Cannula Oxygen Flow Rate 3 3 3 Fraction of Inspired Oxygen 10/30/22 17:05 10/30/22 17:25 10/30/22 17:55 Temperature 97.9 F 97.9 F 97.9 F Pulse Rate 91 89 85 Respiratory Rate 16 16 14 Blood Pressure 132/73 128/82 132/70 Pulse Oximetry 86 L 90 96 Oxygen Delivery Oxygen Flow Rate Fraction of Inspired Oxygen 10/30/22 18:55 10/30/22 20:45 10/30/22 20:00 Temperature 98.5 F 97.6 F Pulse Rate 91 77 86 Respiratory Rate 16 18 16 Blood Pressure 102/67 129/80 Pulse Oximetry 94 93 95 Oxygen Delivery Venturi Mask Oxygen Flow Rate 12 Fraction of Inspired Oxygen 40 10/30/22 20:00 10/31/22 00:00 10/31/22 04:49 Temperature 97.4 F L 97.2 F L Pulse Rate 77 70 65 Respiratory Rate 18 16 14 Blood Pressure 128/83 118/77 Pulse Oximetry 93 96 98 Oxygen Delivery Venturi Mask Oxygen Flow Rate 12 Fraction of Inspired Oxygen 40 10/31/22 08:11 10/31/22 10:02 Temperature 97.8 F Pulse Rate 83 Respiratory Rate 16 Blood Pressure 102/59 L Pulse Oximetry 92 Oxygen Delivery Nasal Cannula Oxygen Flow Rate 6 Fraction of Inspired Oxygen Intake/Output Intake/Output: Intake & Output 10/28/22 10/29/22 10/30/22 10/31/22 23:59 23:59 23:59 23:59 Intake Total 1999 Output Total 3350 8870 2600 [id number] [id number] [phone] Meds/Results Medications: Active Medications Generic Name Dos
--- NOTE | 2022-10-31 13:10 | PCPTNOTE ---
On 10/31/22, the student, SYDNEY Florentino, provided care and completed [facility] documentation on this patient. I have reviewed the student's documentation and agree with the findings.
[2022-10-31] MEDS: QUEtiapine FUMARATE 100 MG TABLET 300 MG PO (20:36)
[2022-10-31] MEDS: MIRTAZAPINE 15 MG TABLET PO (20:37)
[2022-11-01] VITALS (7 sets, daily range): BP systolic 105–134; BP diastolic 61–73; PULSE 78–90; RESP 14–18; TEMP 36.6–37.2; O2SAT 90–94
[2022-11-01] MEDS: CITALOPRAM HYDROBROMIDE 20 MG TABLET PO (09:43)
[2022-11-01] MEDS: ATORVASTATIN 10 MG TABLET PO (09:43)
[2022-11-01] MEDS: SENNA/DOCUSATE SODIUM TABLET 2 TAB PO ×2 (09:43→18:01)
[2022-11-01] MEDS: ASPIRIN 325 MG ENTERIC TABLET PO ×2 (09:43→21:26)
[2022-11-01] MEDS: risperiDONE 1 MG TABLET 2 MG PO ×2 (09:44→18:01)
[2022-11-01] MEDS: polyethylene glycoL 3350 17 GM POWD.PACK PO (09:49)
--- NOTE | 2022-11-01 12:13 | PM.IMPN ---
Progress Note: A&P Assessment and Plan (1) Closed intertrochanteric fracture of right femur: Qualifiers: Encounter type: subsequent encounter Fracture alignment: displaced Fracture healing: with routine healing Qualified Code(s): S72.141D - Displaced intertrochanteric fracture of right femur, subsequent encounter for closed fracture with routine healing Code(s): S72.141A - Displaced intertrochanteric fracture of right femur, initial encounter for closed fracture Status: Acute Assessment and Plan: X-ray on admission shows a comminuted mildly angulated right IT fracture status post IM nail by ortho on 10/29/2022. Continue PT OT. Pain control per Orthopedics. He is on aspirin for DVT prophylaxis. (2) Fall from ground level: Code(s): W18.30XA - Fall on same level, unspecified, initial encounter Status: Acute Assessment and Plan: CT the brain showed no acute findings. Cervical spine CT also showing no acute findings. Right femur fracture related to the fall. No other fractures noted by other imaging. UA note consistent with UTI. PT/OT ordered. TCk elevated but no blood in UA. Repeat CK. Check B12, folate and TSH given his mild confusion and his recent fall. Will also check ammonia level as well. (3) Type 2 diabetes mellitus without complications: Code(s): E11.9 - Type 2 diabetes mellitus without complications Status: Acute Assessment and Plan: The patient's blood glucose was reviewed on 11/01 Glucose remains elevated at times. Continue diabetic diet. Start accuCheks covering with sliding scale. Hypoglycemia protocol will be available as needed. Continue to follow. Check A1c. (4) Alcohol abuse: Code(s): F10.10 - Alcohol abuse, uncomplicated Status: Acute Assessment and Plan: No evidence of withdrawal. Patient states his last alcoholic drink was 1 year ago. Will add thiamine and folate. (5) Rhabdomyolysis: Code(s): M62.82 - Rhabdomyolysis Status: Acute Assessment and Plan: Total CK elevated at 3200. No blood in the urine. Will repeat CK level. Start IV fluids if still elevated above 1000. Recheck UA. (6) Tobacco abuse: Code(s): Z72.0 - Tobacco use Status: Acute Assessment and Plan: Patient was educated about the benefits of smoking cessation. He was also educated about the dangers of smoking near open oxygen. He voices understanding of this. (7) Chronic respiratory failure: Code(s): J96.10 - Chronic respiratory failure, unspecified whether with hypoxia or hypercapnia Status: Acute Assessment and Plan: Patient states he wears oxygen at home chronically. He is not aware how much she wears nor is he aware of the [employer] company who provides the oxygen. Plan for home O2 evaluation prior to discharge. Subjective Date/time seen: 11/01/22 12:13 Interval history: 62yo male with alcohol abuse, DM and depression here for hip pain after a fall and found to have femur fracture. Assuming care. Chart reviewed. Patient's last drink was 1 year ago. Quit tobacco about 4 days ago. Slept okay last night. He denies any chest pain or shortness of breath. He does have chronic respiratory failure requiring oxygen at home. He does not know how much oxygen he requires. He denies that he smokes near his oxygen. The right ptosis is chronic. Exam Narrative: AF 98.5 108/72 79 16 90% 4L Gen - NARD HEENT - right ptosis. Chest - decreased BS bibasilar with inspiratory crackles upper bases. CV - RRR S1/S2 Abd - Soft, NT/ND, Positive BS Ext - No pedal edema. 2+ DP bilaterally. right lateral hip incisions clean, dry and intact Psych - Nml mood and affect neuro - Alert and oriented x3 (not Pete name) Skin - Warm and dry. Marked LE scaly skin Objective Data Vital Signs Vital Signs: Vital Signs - 24 hr 10/31/22 14:02 10/31/22 18:02 10/31/22 21:30 Tempera
[2022-11-01] MEDS: EUCERIN CREAM 120 GM JAR 1 APPLIC TOPICAL ×2 (13:14→21:30)
[2022-11-01] MEDS: THIAMINE HCL 100 MG TABLET PO (13:14)
[2022-11-01] MEDS: FOLIC ACID 1 MG TABLET PO (13:14)
[2022-11-01 13:52] LABS: Creatine Kinase 599 U/L (55-170)
[2022-11-01 13:54] LABS: Ammonia < 9 umol/L (9-30); Anion Gap 4 mmol/L (8-16); Blood Urea Nitrogen 15 mg/dL (9-20); Calcium 8.6 mg/dL (8.4-10.2); Carbon Dioxide 32 mmol/L (22-30); Chloride 91 mmol/L (98-107); Estimated CRCL calculation 90 ml/min; Estimated Glomerular Filt Rate > 60; Glucose 359 mg/dL (65-110); Potassium 3.9 mmol/L (3.4-5.0); Sodium 127 mmol/L (137-145)
[2022-11-01 14:02] LABS: Hemoglobin A1C 11.4 % (<5.7)
[2022-11-01 15:00] LABS: Folic Acid 7.6 ng/mL (2.76->20)
[2022-11-01 17:52] LABS: Glucose Point of Care 354 mg/dl (65-105)
[2022-11-01] MEDS: INSULIN ASPART (*BKC) 100 UNITS/ML SUB-Q (18:01)
[2022-11-01] MEDS: CYANOCOBALAMIN INJ 1,000 MCG/ML VIAL 1000 MCG IM (18:45)
[2022-11-01 21:05] LABS: Glucose Point of Care 372 mg/dl (65-105)
[2022-11-01] MEDS: QUEtiapine FUMARATE 100 MG TABLET 300 MG PO (21:21)
[2022-11-01] MEDS: MIRTAZAPINE 15 MG TABLET PO (21:21)
[2022-11-02] VITALS (7 sets, daily range): BP systolic 105–136; BP diastolic 62–95; PULSE 73–89; RESP 16–20; TEMP 36.1–37.3; O2SAT 92–99
[2022-11-02 06:24] LABS: Appearance Urine Clear (Clear); Bacteria Urine None Seen /hpf; Bilirubin Urine Negative (Negative); Blood Urine Negative (Negative); Color Urine Yellow (Yellow); Glucose Urine UA 3+ mg/dL (Negative); Ketones Urine Negative (Negative); Leukocyte Esterase Ur Negative LEU/UL (NEGATIVE); Nitrate Urine Negative (Negative); Non Pathogenic Casts 0-2; Protein Urine Trace mg/dL (Negative); RBC Urine 0-2 /hpf (0-2); Specific Grav Ur 1.029 (1.001-1.035); Squamous Epithelial Cell Urine None seen /hpf (Few); WBC Urine 0-5 /hpf (0-3); pH Urine 6.5 (5.0-9.0)
[2022-11-02 06:43] LABS: Add Urine Microscopic? YES
[2022-11-02 06:58] LABS: Basophils Percent Auto 0.4 % (0.2-1.2); Eosinophils Absolute Auto 0.2 K/mm3 (0-0.3); Eosinophils Percent Auto 2.3 % (0-4.4); Hematocrit 42.9 % (42.0-52.0); Hemoglobin 13.9 g/dL (14.0-18.0); Immature Granulocyte Absolute 0.03 K/mm3 (0.00-0.031); Immature Granulocyte Percent A 0.4 % (0-0.5); Lymphocytes Absolute Auto 1.25 K/mm3 (0.9-3.2); Lymphocytes Percent Auto 15.7 % (18.3-44.2); Mean Corpuscular HGB Conc 32.4 g/dl (32-36); Mean Corpuscular Hemoglobin 31.8 pg (26-34); Mean Corpuscular Volume 98.2 fl (80-100); Monocytes Absolute Auto 0.7 K/mm3 (0.1-0.6); Monocytes Percent Auto 8.3 % (2.6-8.5); Neutrophils Absolute Auto 5.8 K/mm3 (1.3-6.7); Neutrophils Percent Auto 72.9 % (45.5-73.1); Red Blood Count 4.37 M/mm3 (4.6-6.20); Red Cell Distribution Width 13.1 % (11.5-14.5)
[2022-11-02 08:11] LABS: Platelet Estimate Adequate (Adequate); Schistocytes None Seen (NORMAL)
[2022-11-02 08:17] LABS: Glucose Point of Care 306 mg/dl (65-105)
[2022-11-02 08:24] LABS: Alanine Aminotransferase 25 U/L (6-50); Albumin Level 3.6 g/dL (3.5-5.1); Alkaline Phosphatase 77 U/L (38-126); Anion Gap 4 mmol/L (8-16); Aspartate Amino Transferase 32 U/L (17-59); Blood Urea Nitrogen 13 mg/dL (9-20); Calcium 8.9 mg/dL (8.4-10.2); Carbon Dioxide 35 mmol/L (22-30); Chloride 92 mmol/L (98-107); Creatine Kinase 511 U/L (55-170); Estimated CRCL calculation 90 ml/min; Estimated Glomerular Filt Rate > 60; Glucose 289 mg/dL (65-110); Potassium 4.6 mmol/L (3.4-5.0); Sodium 131 mmol/L (137-145)
[2022-11-02] MEDS: MORPHINE SULFATE (*CRX) 4 MG/ML INJ IV PUSH ×2 (09:48→13:09)
[2022-11-02] MEDS: SENNA/DOCUSATE SODIUM TABLET 2 TAB PO ×2 (09:52→18:02)
[2022-11-02] MEDS: CYANOCOBALAMIN 1,000 MCG TABLET 1000 MCG PO (09:52)
[2022-11-02] MEDS: metFORMIN HCL 500 MG TABLET 1000 MG PO (09:52)
[2022-11-02] MEDS: ATORVASTATIN 10 MG TABLET PO (09:52)
[2022-11-02] MEDS: FOLIC ACID 1 MG TABLET PO (09:53)
[2022-11-02] MEDS: THIAMINE HCL 100 MG TABLET PO (09:53)
[2022-11-02] MEDS: risperiDONE 1 MG TABLET 2 MG PO ×2 (09:53→20:02)
[2022-11-02] MEDS: EUCERIN CREAM 120 GM JAR 1 APPLIC TOPICAL ×2 (09:55→20:41)
[2022-11-02] MEDS: ASPIRIN 325 MG ENTERIC TABLET PO ×2 (10:02→20:44)
[2022-11-02] MEDS: INSULIN GLARGINE (*BKC) 100 UNITS/ML 13 UNITS SUB-Q (10:02)
[2022-11-02] MEDS: polyethylene glycoL 3350 17 GM POWD.PACK PO (10:02)
[2022-11-02] MEDS: INSULIN ASPART (*BKC) 100 UNITS/ML SUB-Q ×3 (10:03→18:02)
[2022-11-02 11:56] LABS: Glucose Point of Care 339 mg/dl (65-105)
--- NOTE | 2022-11-02 15:09 | PM.IMPN ---
Progress Note: A&P Assessment and Plan (1) Closed intertrochanteric fracture of right femur: Qualifiers: Encounter type: subsequent encounter Fracture alignment: displaced Fracture healing: with routine healing Qualified Code(s): S72.141D - Displaced intertrochanteric fracture of right femur, subsequent encounter for closed fracture with routine healing Code(s): S72.141A - Displaced intertrochanteric fracture of right femur, initial encounter for closed fracture Status: Acute Assessment and Plan: Patient presents with hip paiin after a fall. X-ray on admission shows a comminuted mildly angulated right IT fracture status post IM nail by ortho on 10/29/2022. Continue PT/OT. Pain control per Orthopedics. He is on aspirin for DVT prophylaxis. (2) Hypoxia: Code(s): R09.02 - Hypoxemia Status: Acute Assessment and Plan: Patient was on room air initially but became hypoxic requiring O2. CXR showing mild interstitial edema. Etiology unclear. He has a hx of smoking. Repeat CXR showing improvement in the edema but still on 5L. Check CTA chest to exclude PE. If negative, consider aspiration and/or COPD. He also may have needed O2 prior to admission without realizing. (3) Fall from ground level: Code(s): W18.30XA - Fall on same level, unspecified, initial encounter Status: Acute Assessment and Plan: CT the brain showed no acute findings. Cervical spine CT also showing no acute findings. Right femur fracture related to the fall. No other fractures noted by other imaging. UA not consistent with UTI. PT/OT ordered. TCk elevated but no blood in UA. Repeat CK better. B12, folate, ammonia and TSH were checked given his mild confusion and his recent fall. These were normal except low B12 level. This was replaced. (4) Type 2 diabetes mellitus without complications: Code(s): E11.9 - Type 2 diabetes mellitus without complications Status: Acute Assessment and Plan: A1c 11.4. The patient's blood glucose was reviewed on 11/02 Glucose remains elevated. Continue diabetic diet. Start accuCheks covering with sliding scale. Hypoglycemia protocol will be available as needed. Add lantus and advance as needed. Continue to follow. (5) Alcohol abuse: Code(s): F10.10 - Alcohol abuse, uncomplicated Status: Acute Assessment and Plan: No evidence of withdrawal. Patient states his last alcoholic drink was 1 year ago. Continue thiamine and folate. (6) Rhabdomyolysis: Code(s): M62.82 - Rhabdomyolysis Status: Acute Assessment and Plan: Total CK elevated at 3200. No blood in the urine. Repeat CK level 500. (7) Tobacco abuse: Code(s): Z72.0 - Tobacco use Status: Acute Assessment and Plan: Patient was educated about the benefits of smoking cessation. He was also educated about the dangers of smoking near open oxygen. He voices understanding of this. (8) Chronic respiratory failure: Code(s): J96.10 - Chronic respiratory failure, unspecified whether with hypoxia or hypercapnia Status: Acute Assessment and Plan: It appears this is not accurate and that patient does NOT have O2 at home. He may need O2 at discahrge Subjective Date/time seen: 11/02/22 15:09 Interval history: 62yo male with alcohol abuse, DM and depression here for hip pain after a fall and found to have femur fracture. patient is aler but confused so hx is unreliable. Family in the room and state the patietn does not wear O2 at home nor does he have a chronic White. No SOB but has JULIEN. Review of Systems Review of Systems: ROS unobtainable: Yes unobtainable due to mental status Exam Narrative: AF 97.1 130/95 88 20 99% 5L Gen - NARD HEENT - right ptosis. Chest - bibasilar inspiratory crackles. nml RR CV - RRR S1/S2 Abd - Soft, NT/ND, Positive BS - White secured draining clear yellow ur
[2022-11-02 17:01] LABS: Glucose Point of Care 257 mg/dl (65-105)
[2022-11-02] MEDS: HYDROcodone/acetaminophen (*CRX) 5-325 MG TABLET 1 TAB PO (18:01)
[2022-11-02] MEDS: QUEtiapine FUMARATE 100 MG TABLET 300 MG PO (20:39)
[2022-11-02] MEDS: MIRTAZAPINE 15 MG TABLET PO (20:40)
[2022-11-02 21:04] LABS: Glucose Point of Care 274 mg/dl (65-105)
[2022-11-02] MEDS: HEPARIN SOD/D5W 100 UNITS/ML 25,000 UNITS/250 ML BAG 12 UNITS IV CONT (22:40)
[2022-11-02 23:16] LABS: Basophils Percent Auto 0.2 % (0.2-1.2); Eosinophils Absolute Auto 0.2 K/mm3 (0-0.3); Eosinophils Percent Auto 2.4 % (0-4.4); Hematocrit 37.1 % (42.0-52.0); Hemoglobin 12.3 g/dL (14.0-18.0); Immature Granulocyte Absolute 0.04 K/mm3 (0.00-0.031); Immature Granulocyte Percent A 0.5 % (0-0.5); Lymphocytes Absolute Auto 1.37 K/mm3 (0.9-3.2); Lymphocytes Percent Auto 15.7 % (18.3-44.2); Mean Corpuscular HGB Conc 33.2 g/dl (32-36); Mean Corpuscular Hemoglobin 31.6 pg (26-34); Mean Corpuscular Volume 95.4 fl (80-100); Mean Platelet Volume 9.5 fl (7.4-10.4); Monocytes Absolute Auto 0.7 K/mm3 (0.1-0.6); Monocytes Percent Auto 8.3 % (2.6-8.5); Neutrophils Absolute Auto 6.3 K/mm3 (1.3-6.7); Neutrophils Percent Auto 72.9 % (45.5-73.1); Platelet Count Result 200 k/mm3 (150-375); Red Blood Count 3.89 M/mm3 (4.6-6.20); Red Cell Distribution Width 12.9 % (11.5-14.5); White Blood Count 8.7 K/mm3 (4.5-10.0)
--- NOTE | 2022-11-02 23:52 | PC.NURSE ---
At 2240 a heparin drip started at 12cc hr. Checked off with [place] and pump locked for safety.
--- NOTE | 2022-11-03 | ECHO_ITS ---
Patient Info Name: Joel Browning Age: 62 years : 1960 Gender: Male Ht: 64 in Wt: 187 lbs BSA: 1.99 m2 HR: 88 bpm BP: 110 / 64 mmHg Heart Rhythm: Sinus Rhythm Technical Quality: Fair Exam Date: 11/03/2022 3:23 PM Exam Location: [facility] Card Pulmonary Patient Status: Inpatient Admit Date: 10/29/2022 Staff Ordering Physician: Brannon Robins MD [employer] Supervisor: Melinda Dean RDCS Attending Provider: Jacob Gee MD Exam Type: CA echo dop color flow w con Study Info Indications - PE Complete two-dimensional, color flow and Doppler transthoracic echocardiogram is performed with contrast to opacify the left ventricle and to improve the deliniation of the left ventricle endocardial borders. Contrast/Agitated Saline Contrast/Ag. Saline: Definity Amount: 2.00 ml Administered By: Melinda Dean RDCS Existing IV Access: Yes IV Access Condition: patent with no signs of infiltration Summary 1. Normal left ventricular size and thickness with good contractility of all segments. Ejection fraction 60-65%. Normal diastolic function. 2. Right ventricle is not well visualized. However in the subcostal view there appears to be mild right ventricular enlargement and hypokinesis. 3. There is mild aortic valve calcification without stenosis. 4. There is trace tricuspid valve regurgitation. 5. Mild pulmonary hypertension, estimated pulmonary arterial systolic pressure is 37 mmHg. 6. Normal sinus rhythm. 7. Technically difficult study. Definity echo contrast used. Left Ventricle Left ventricular chamber dimension is normal. Left ventricular systolic function is normal, estimated at 60-65%. There is no increased left ventricular wall thickness. Left ventricular septal wall motion is normal. The left ventricular diastolic function is normal. Right Ventricle Right ventricular chamber dimension is mildly enlarged. Right ventricular systolic function is reduced. Left Atria Left atrial chamber dimension is normal. Right Atria Right atrial chamber dimension is normal. Aortic Valve The aortic valve is trileaflet. There is no aortic valve sclerosis. There is no aortic valve stenosis. There is no aortic valve regurgitation. There is mild aortic valve calcification without stenosis. Pulmonic Valve The pulmonic valve is normal. There is no pulmonic valve stenosis. There is no pulmonic regurgitation. Mitral Valve The mitral valve has normal leaflets. There is no mitral valve stenosis. There is no mitral valve regurgitation. Tricuspid Valve The tricuspid valve leaflets are normal. There is no significant tricuspid valve stenosis. There is trace tricuspid valve regurgitation. Mild pulmonary hypertension, estimated pulmonary arterial systolic pressure is 37 mmHg. Pericardium/Pleural The pericardium appears normal. There is no pericardial effusion. Inferior Vena Cava Not well visualized inferior vena cava with >50% collapse upon inspiration consistent with Empty right atrial pressure, 10 mmHg. Aorta The aortic root size at the sinus of Valsalva is normal. The prox ascending aorta size is normal. Left Ventricular Outflow Tract Name Value Normal LVOT 2D LVOT Diameter 2.01 cm LVOT Doppler
[2022-11-03 00:05] LABS: Prothrombin Time 13.1 Seconds (11.1-14.7)
[2022-11-03 00:06] LABS: Partial Thromboplastin Time 28.9 SECONDS (22.3-36.8)
[2022-11-03 05:18] LABS: Basophils Percent Auto 0.3 % (0.2-1.2); Eosinophils Absolute Auto 0.2 K/mm3 (0-0.3); Eosinophils Percent Auto 3.1 % (0-4.4); Hemoglobin 13.2 g/dL (14.0-18.0); Immature Granulocyte Absolute 0.04 K/mm3 (0.00-0.031); Immature Granulocyte Percent A 0.6 % (0-0.5); Lymphocytes Absolute Auto 1.49 K/mm3 (0.9-3.2); Lymphocytes Percent Auto 21.7 % (18.3-44.2); Mean Corpuscular Hemoglobin 31.7 pg (26-34); Mean Corpuscular Volume 96.2 fl (80-100); Mean Platelet Volume 9.7 fl (7.4-10.4); Monocytes Absolute Auto 0.5 K/mm3 (0.1-0.6); Monocytes Percent Auto 7.4 % (2.6-8.5); Neutrophils Absolute Auto 4.6 K/mm3 (1.3-6.7); Neutrophils Percent Auto 66.9 % (45.5-73.1); Platelet Count Result 234 k/mm3 (150-375); Red Blood Count 4.16 M/mm3 (4.6-6.20); Red Cell Distribution Width 13.1 % (11.5-14.5); White Blood Count 6.9 K/mm3 (4.5-10.0)
[2022-11-03 05:29] LABS: Carbon Dioxide 35 mmol/L (22-30); Chloride 93 mmol/L (98-107); Potassium 4.2 mmol/L (3.4-5.0); Sodium 132 mmol/L (137-145)
[2022-11-03 05:30] LABS: Albumin Level 3.5 g/dL (3.5-5.1); Anion Gap 4 mmol/L (8-16); Blood Urea Nitrogen 14 mg/dL (9-20); Estimated CRCL calculation 90 ml/min; Estimated Glomerular Filt Rate > 60; Glucose 256 mg/dL (65-110); Phosphorus 4.6 mg/dL (2.5-4.5)
[2022-11-03 05:31] LABS: Partial Thromboplastin Time 35.9 SECONDS (22.3-36.8)
[2022-11-03] MEDS: HEPARIN SODIUM 5,000 UNITS/ML VIAL 5000 UNITS IV PUSH ×2 (05:45→18:26)
[2022-11-03 06:00] VITALS: BP 110/64; PULSE 88; RESP 16; TEMP 36.7; O2SAT 91
[2022-11-03] MEDS: HYDROcodone/acetaminophen (*CRX) 5-325 MG TABLET 1 TAB PO (06:33)
[2022-11-03 07:48] LABS: Glucose Point of Care 242 mg/dl (65-105)
[2022-11-03 08:00] VITALS: O2SAT 93
[2022-11-03] MEDS: SENNA/DOCUSATE SODIUM TABLET 2 TAB PO ×2 (08:37→17:09)
[2022-11-03] MEDS: ASPIRIN 325 MG ENTERIC TABLET PO (08:38)
[2022-11-03] MEDS: risperiDONE 1 MG TABLET 2 MG PO ×2 (08:38→17:09)
[2022-11-03] MEDS: metFORMIN HCL 500 MG TABLET 1000 MG PO (08:38)
[2022-11-03] MEDS: FOLIC ACID 1 MG TABLET PO (08:38)
[2022-11-03] MEDS: CYANOCOBALAMIN 1,000 MCG TABLET 1000 MCG PO (08:38)
[2022-11-03] MEDS: ATORVASTATIN 10 MG TABLET PO (08:38)
[2022-11-03] MEDS: INSULIN ASPART (*BKC) 100 UNITS/ML SUB-Q ×3 (08:38→21:10)
[2022-11-03] MEDS: THIAMINE HCL 100 MG TABLET PO (08:38)
[2022-11-03] MEDS: INSULIN GLARGINE (*BKC) 100 UNITS/ML 18 UNITS SUB-Q (08:40)
[2022-11-03] MEDS: polyethylene glycoL 3350 17 GM POWD.PACK PO (08:40)
--- NOTE | 2022-11-03 09:33 | PCNWS ---
Weekly nutritional screen. Patient is tolerating current Diabetic consistent carb diet with adequate intake. 100% recorded. No weight loss reported. No nutritional needs at this time.
[2022-11-03 10:32] VITALS: O2SAT 93
--- NOTE | 2022-11-03 10:40 | PCOTNOTE ---
Patient unable to be seen at this time. Per RN, Patient having testing done, awaiting the results.
[2022-11-03 11:46] LABS: Glucose Point of Care 170 mg/dl (65-105)
[2022-11-03 12:14] LABS: Partial Thromboplastin Time 60.9 SECONDS (22.3-36.8)
--- NOTE | 2022-11-03 13:57 | PM.IMPN ---
Progress Note: A&P Assessment and Plan (1) Pulmonary embolism: Code(s): I26.99 - Other pulmonary embolism without acute cor pulmonale Status: Acute Assessment and Plan: Patient was on room air initially but became hypoxic requiring O2 soon after admission. CXR initially showing mild interstitial edema. He has a hx of smoking and initially stated he wears O2 at home (which later it was discovered to be false). Repeat CXR showing improvement in the edema but still was on 5L so CTA chest ordered. CTA showing acute PE distal left main pulmonary artery extending into multiple lobes. Questionable heart strain. Hypoxia related to PE and felt present on admission given the hypoxia since admission. Heparin drip started. Spoke with ortho who felt okay for Eliquis. Check LE dopplers and Echo. (2) Closed intertrochanteric fracture of right femur: Qualifiers: Encounter type: subsequent encounter Fracture alignment: displaced Fracture healing: with routine healing Qualified Code(s): S72.141D - Displaced intertrochanteric fracture of right femur, subsequent encounter for closed fracture with routine healing Code(s): S72.141A - Displaced intertrochanteric fracture of right femur, initial encounter for closed fracture Status: Acute Assessment and Plan: Patient presents with hip pain after a fall. X-ray on admission shows a comminuted mildly angulated right IT fracture status post IM nail by ortho on 10/30/2022. Continue PT/OT. Pain control per Orthopedics. He was on aspirin for DVT prophylaxis but now on Heparin drip. (3) Fall from ground level: Code(s): W18.30XA - Fall on same level, unspecified, initial encounter Status: Acute Assessment and Plan: CT the brain showed no acute findings. Cervical spine CT also showing no acute findings. Right femur fracture related to the fall. The CT scan reviewed and does show scapula fracture as well. No other fractures noted by other imaging. UA not consistent with UTI. PT/OT ordered. TCK elevated but no blood in UA. Repeat CK better. B12, folate, ammonia and TSH were checked given his mild confusion and his recent fall. These were normal except low B12 level. B12 was replaced. (4) Type 2 diabetes mellitus without complications: Code(s): E11.9 - Type 2 diabetes mellitus without complications Status: Acute Assessment and Plan: A1c 11.4. The patient's blood glucose was reviewed on 11/03 Glucose remains elevated. Continue diabetic diet. Start accuCheks covering with sliding scale. Hypoglycemia protocol will be available as needed. Advance lantus today. Continue to follow. (5) Alcohol abuse: Code(s): F10.10 - Alcohol abuse, uncomplicated Status: Acute Assessment and Plan: No evidence of withdrawal. Patient states his last alcoholic drink was 1 year ago. Continue thiamine and folate. (6) Rhabdomyolysis: Code(s): M62.82 - Rhabdomyolysis Status: Acute Assessment and Plan: Total CK elevated at 3200 related to the fall. No blood in the urine. Repeat CK level 500. (7) Tobacco abuse: Code(s): Z72.0 - Tobacco use Status: Acute Assessment and Plan: Patient was educated about the benefits of smoking cessation. He was also educated about the dangers of smoking near open oxygen. He voices understanding of this. (8) Scapula fracture: Code(s): S42.109A - Fracture of unspecified part of scapula, unspecified shoulder, initial encounter for closed fracture Status: Acute Subjective Date/time seen: 11/03/22 13:57 Interval history: 62yo male with alcohol abuse, DM and depression here for hip pain after a fall and found to have femur fracture. No problems overnight. No cough or CP. No SOB. Minimal pain to the right hip. He is alert but chronically confused. Discovered to have PE so Heparin started. Review of Systems Review of System
[2022-11-03] MEDS: PERFLUTREN LIPID MICROSPHERES 1.5 ML VIAL DILUTED TO 10 ML TOTAL VOLUME IV PUSH (15:30)
[2022-11-03 15:31] VITALS: BMI 35.4
[2022-11-03 17:03] LABS: Glucose Point of Care 223 mg/dl (65-105)
[2022-11-03] MEDS: EUCERIN CREAM 120 GM JAR 1 APPLIC TOPICAL ×2 (17:09→20:02)
--- NOTE | 2022-11-03 17:19 | PCPTNOTE ---
The patient treatment was not able to be completed today due to awaiting further testing. I spoke to Dr. Robins regarding Chest CTA results and Dr. Robins agreed to wait for further test results before PT treatment. Will plan to continue treatment per plan of care.
[2022-11-03 18:09] LABS: Partial Thromboplastin Time 41.9 SECONDS (22.3-36.8)
[2022-11-03] MEDS: HEPARIN SOD/D5W 100 UNITS/ML 25,000 UNITS/250 ML BAG 18 UNITS IV CONT (18:23)
--- NOTE | 2022-11-03 19:58 | PC.NURSE ---
pt refused venous doppler
[2022-11-03 20:00] VITALS: PULSE 88; RESP 16; O2SAT 93
[2022-11-03] MEDS: QUEtiapine FUMARATE 100 MG TABLET 300 MG PO (20:01)
[2022-11-03] MEDS: MIRTAZAPINE 15 MG TABLET PO (20:02)
[2022-11-03 20:33] LABS: Glucose Point of Care 249 mg/dl (65-105)
--- NOTE | 2022-11-03 20:50 | PC.NURSE ---
called GABBY Quintanilla regarding pt continued elevated bs reading current reading 249
[2022-11-03 22:00] VITALS: BP 114/67; PULSE 83; RESP 16; TEMP 36.2; O2SAT 95
[2022-11-04 00:01] LABS: Partial Thromboplastin Time 81.2 SECONDS (22.3-36.8)
--- NOTE | 2022-11-04 01:27 | PC.NURSE ---
no rate or bolus needed for PTT, next PTT at 535
[2022-11-04 06:00] VITALS: BP 123/81; PULSE 83; RESP 16; TEMP 36; O2SAT 94
[2022-11-04 06:15] LABS: Partial Thromboplastin Time 78.3 SECONDS (22.3-36.8)
[2022-11-04 06:16] LABS: Anion Gap 3 mmol/L (8-16); Blood Urea Nitrogen 14 mg/dL (9-20); Calcium 8.7 mg/dL (8.4-10.2); Carbon Dioxide 32 mmol/L (22-30); Chloride 95 mmol/L (98-107); Estimated CRCL calculation 79 ml/min; Estimated Glomerular Filt Rate > 60; Glucose 168 mg/dL (65-110); Potassium 4.1 mmol/L (3.4-5.0); Sodium 130 mmol/L (137-145)
--- NOTE | 2022-11-04 06:19 | PC.NURSE ---
heparin drip PPT therapetic at 782, next PTT scheduled in 6 hours at 1142
[2022-11-04 07:41] LABS: Glucose Point of Care 174 mg/dl (65-105)
[2022-11-04 08:17] VITALS: O2SAT 96
[2022-11-04 08:28] VITALS: O2SAT 95
[2022-11-04] MEDS: INSULIN GLARGINE (*BKC) 100 UNITS/ML 18 UNITS SUB-Q (08:46)
[2022-11-04] MEDS: polyethylene glycoL 3350 17 GM POWD.PACK PO (08:46)
[2022-11-04] MEDS: APIXABAN 5 MG TABLET 10 MG PO (08:47)
[2022-11-04] MEDS: FOLIC ACID 1 MG TABLET PO (08:47)
[2022-11-04] MEDS: metFORMIN HCL 500 MG TABLET 1000 MG PO (08:47)
[2022-11-04] MEDS: THIAMINE HCL 100 MG TABLET PO (08:47)
[2022-11-04] MEDS: risperiDONE 1 MG TABLET 2 MG PO ×2 (08:47→16:18)
[2022-11-04] MEDS: ATORVASTATIN 10 MG TABLET PO (08:47)
[2022-11-04] MEDS: CYANOCOBALAMIN 1,000 MCG TABLET 1000 MCG PO (08:47)
[2022-11-04] MEDS: SENNA/DOCUSATE SODIUM TABLET 2 TAB PO ×2 (08:47→16:18)
[2022-11-04] MEDS: EUCERIN CREAM 120 GM JAR 1 APPLIC TOPICAL (08:48)
[2022-11-04 11:32] LABS: Glucose Point of Care 248 mg/dl (65-105)
[2022-11-04] MEDS: INSULIN ASPART (*BKC) 100 UNITS/ML SUB-Q (11:49)
[2022-11-04 14:00] VITALS: BP 111/71; PULSE 91; RESP 20; TEMP 36.9; O2SAT 97
[2022-11-04 16:34] LABS: Glucose Point of Care 179 mg/dl (65-105)
--- NOTE | 2022-11-04 16:34 | PM.DS ---
DS: Admitting Diagnosis Discharge Date 11/04/22 Admitting Diagnosis Fall DS: Discharge Diagnosis Discharge Diagnosis (1) Pulmonary embolism: Code(s): I26.99 - Other pulmonary embolism without acute cor pulmonale Status: Acute (2) Closed intertrochanteric fracture of right femur: Qualifiers: Encounter type: subsequent encounter Fracture alignment: displaced Fracture healing: with routine healing Qualified Code(s): S72.141D - Displaced intertrochanteric fracture of right femur, subsequent encounter for closed fracture with routine healing Code(s): S72.141A - Displaced intertrochanteric fracture of right femur, initial encounter for closed fracture Status: Acute (3) Fall from ground level: Code(s): W18.30XA - Fall on same level, unspecified, initial encounter Status: Acute (4) Type 2 diabetes mellitus without complications: Code(s): E11.9 - Type 2 diabetes mellitus without complications Status: Acute (5) Alcohol abuse: Code(s): F10.10 - Alcohol abuse, uncomplicated Status: Acute (6) Rhabdomyolysis: Code(s): M62.82 - Rhabdomyolysis Status: Acute (7) Tobacco abuse: Code(s): Z72.0 - Tobacco use Status: Acute (8) Scapula fracture: Code(s): S42.109A - Fracture of unspecified part of scapula, unspecified shoulder, initial encounter for closed fracture Status: Acute DS: Summary Hospital Course Reason for hospitalization: 62yo male with alcohol abuse, DM and depression here for hip pain after a fall and found to have femur fracture and PE. Please see H&P for details. Hospital Course: Patient presents with hip pain after a fall. X-ray on admission shows a comminuted mildly angulated right IT fracture status post IM nail by ortho on 10/30/2022.?CT the brain showed no acute findings.? Cervical spine CT also showing no acute findings.? Right femur fracture related to the fall.? The CT scan reviewed and does show scapula fracture as well. No other fractures noted by other imaging.? UA not consistent with UTI. TCK elevated but no blood in UA. Repeat CK better.? B12, folate, ammonia and TSH were checked given his mild confusion and his recent fall. These were normal except low B12 level. B12 was replaced. He was on aspirin for DVT prophylaxis but then switched to Heparin drip once PE diagnosed. Patient was on room air initially but became hypoxic requiring O2 soon after admission. CXR initially showing mild interstitial edema. He has a hx of smoking and initially stated he wears O2 at home (which later it was discovered to be false). Repeat CXR showing improvement in the edema but still was on 5L so CTA chest ordered. CTA showing acute PE distal left main pulmonary artery extending into multiple lobes. Questionable heart strain. Hypoxia related to PE and felt present on admission given the hypoxia since admission. Heparin drip started. Spoke with ortho who felt okay for Eliquis. LE dopplers negative for DVT in the Rt LE but patient could not tolerate full test so left leg was not visualized. Echo showing EF 60-65% with normal diastolic function but possible mild RV enlargement and HK (suboptimal). Mild pulmonary HTN. Patient was educated about the benefits of smoking cessation.? He was also educated about the dangers of smoking near open oxygen.? He voices understanding of this. He overall did well ans was able to be discharged to SNF on 11/04/22. Discussed with family in the room Status at Discharge Cognitive/behavioral status at discharge: stable Time Spent with Patient Time attestation: Total time spent providing and/or coordinating discharge services: 34 minutes Time spent: Greater than 30 minutes Exam Narrative: AF 98.4 111/71 91 20 97% 4L Gen - NARD HEENT - right ptosis. Chest - mild bibasilar crackles. nml RR CV - RRR S1/S2 Abd - Soft, NT/ND, Positive BS Ext - No pedal edema. Right hip incisions are clean/d
[2022-11-04 17:03] LABS: SARS-CoV-2 RNA PCR Negative (Negative)
== END 2022-11-04 18:10 | DRG 480 ==
LOC: ANHED 21:40 → ANH3MEDSUR 23:50
PROVIDERS: Chiropractor; Internal Medicine; Orthopaedic Surgery; Student in an Organized Health Care Education/Training Program; Admitting Provider Internal Medicine; Emergency Provider Emergency Medicine; PCP Family Medicine Adolescent Medicine; Visit Provider Internal Medicine
PROC: 0QS636Z Reposition Right Upper Femur with Intramedullary Internal Fixation Device, Percutaneous Approach (ICD-10-PCS; CPT 27245; principal; 2022-10-30 13:30)
DX: S72.141A Displaced intertrochanteric fracture of right femur, initial encounter for closed fracture (principal); I26.99 Other pulmonary embolism without acute cor pulmonale; J96.10 Chronic respiratory failure, unspecified whether with hypoxia or hypercapnia; M62.82 Rhabdomyolysis; Z20.822 Contact with and (suspected) exposure to COVID-19; L30.9 Dermatitis, unspecified; F10.10 Alcohol abuse, uncomplicated; E11.9 Type 2 diabetes mellitus without complications; F32.9 Major depressive disorder, single episode, unspecified; F17.210 Nicotine dependence, cigarettes, uncomplicated; W18.30XA Fall on same level, unspecified, initial encounter
CPT/HCPCS: 36415; 70450; 71045; 71046; 71275; 72125; 73502; 73560; 73564; 73600; 80048; 80053; 80069; 81001; 81003; 82140; 82550; 82607; 82746; 82948; 83036; 83735; 84443; 85025; 85610; 85730; 87635; 93005; 93970; 96361; 96374; 97110; 97161; 97165; 97166; 97530; 97535; 99199; 99285; A9270; C1713; C8929; G0378; J0690; J1100; J1644; J1815; J2270; J2405; J2704; J3010; J3420; J7030; J7120; Q9957; Q9967

== ENCOUNTER 2023-02-24 08:48 | Observation (INO) | payer OTHER, SELFPAY ==
[2023-02-24] VITALS (10 sets, daily range): BP systolic 109–145; BP diastolic 60–88; PULSE 90–105; RESP 16–20; TEMP 36.7–38.2; O2SAT 92–100; BMI 35.2
--- NOTE | ~2023-02-24 | CT_ITS ---
EXAMINATION: CT abdomen pelvis w con INDICATION: Generalized abdominal pain TECHNIQUE: Computed tomographic images of the abdomen and pelvis were obtained after the administrati on of 100 cc of Omnipaque 350 intravenous contrast. The dose-length product (DLP) was 1057.58 mGy-cm. Automated exposure control and iterative reconstruction technique were employed. COMPARISON: None available FINDINGS: There is mild atelectasis of the visualized lung bases. There are small pleural effusions. Cardiomegaly is noted. The liver is diffusely low in attenuation when compared with the spleen, consi stent with hepatic steatosis. The spleen, pancreas, gallbladder, and adrenal glands are normal. The k idneys are unremarkable. No pathologically enlarged abdominal or pelvic lymph nodes are identified. N o free intraperitoneal gas or evidence of bowel obstruction. The appendix is normal. There is mild jose mbar spondylosis. There is antegrade intramedullary lary and interlocking intratrochanteric screw fixa tion of the right femur. IMPRESSION: 1. No CT correlate for the patient's symptoms. 2. Diffuse hepatic steatosis. Reviewed, dictated and finalized at location A. [employer] SCIENTIST
[2023-02-24 09:24] LABS: Basophils Percent Auto 0.2 % (0.2-1.2); Hematocrit 44.1 % (42.0-52.0); Hemoglobin 14.5 g/dL (14.0-18.0); Immature Granulocyte Absolute 0.15 K/mm3 (0.00-0.031); Immature Granulocyte Percent A 0.8 % (0-0.5); Lymphocytes Absolute Auto 0.98 K/mm3 (0.9-3.2); Mean Corpuscular HGB Conc 32.9 g/dl (32-36); Mean Corpuscular Hemoglobin 30.6 pg (26-34); Mean Platelet Volume 10.3 fl (7.4-10.4); Monocytes Absolute Auto 1.6 K/mm3 (0.1-0.6); Neutrophils Absolute Auto 16.7 K/mm3 (1.3-6.7); Platelet Count Result 236 k/mm3 (150-375); Red Blood Count 4.74 M/mm3 (4.6-6.20); Red Cell Distribution Width 13.6 % (11.5-14.5); White Blood Count 19.4 K/mm3 (4.5-10.0)
[2023-02-24 09:34] LABS: Alanine Aminotransferase 50 U/L (6-50); Albumin Level 4.1 g/dL (3.5-5.1); Alkaline Phosphatase 107 U/L (38-126); Anion Gap 10 mmol/L (8-16); Aspartate Amino Transferase 38 U/L (17-59); Bilirubin,Total 1.2 mg/dL (0.2-1.3); Blood Urea Nitrogen 11 mg/dL (9-20); Carbon Dioxide 23 mmol/L (22-30); Chloride 97 mmol/L (98-107); Estimated CRCL calculation 80 ml/min; Estimated Glomerular Filt Rate > 60; Glucose 443 mg/dL (65-110); Lipase 23 U/L (23-300); Sodium 130 mmol/L (137-145)
[2023-02-24 10:15] LABS: Appearance Urine Cloudy (Clear); Bacteria Urine 4+ /hpf; Bilirubin Urine Negative (Negative); Blood Urine Negative (Negative); Color Urine Yellow (Yellow); Glucose Urine UA 3+ mg/dL (Negative); Ketones Urine Negative (Negative); Leukocyte Esterase Ur Trace LEU/UL (Negative); Nitrate Urine Negative (Negative); Protein Urine 1+ mg/dL (Negative); RBC Urine 0-2 /hpf (0-2); Specific Grav Ur 1.025 (1.001-1.035); Squamous Epithelial Cell Urine None seen /hpf (Few); WBC Urine 51-100 /hpf; pH Urine 6.5 (5.0-9.0)
--- NOTE | 2023-02-24 10:18 | ED.GENADULT ---
HPI - General Adult General Chief complaint: Nausea/Vomiting/Diarrhea <Sage Castillo PA-C - Last Filed: 02/24/23 17:07> Stated complaint: abd pain/diarrhea <MERCED Tavarez Last Filed: 02/24/23 17:07> Time Seen by Provider: 02/24/23 08:50 <MERCED Tavarez Last Filed: 02/24/23 17:07> Source: patient <MERCED Tavarez Last Filed: 02/24/23 17:07> Mode of arrival: ambulatory <MERCED Tavarez Last Filed: 02/24/23 17:07> Limitations: no limitations <MERCED Tavarez Last Filed: 02/24/23 17:07> History of Present Illness HPI narrative: This is a 63-year-old male with PMH of insulin-dependent diabetes, alcohol abuse, HLD, PE, chronic respiratory failure who presents to the ED with chief complaint of fever and altered level of consciousness. Per nursing notes patient is normally a&O x4 and right now he is a&o x3. He is on his baseline 3 L O2 nasal cannula. Patient reports that he has had diarrhea for the past few days. Reports abdominal bloating and generalized abdominal pain. Denies cough, shortness of breath, chest pain, flank pain, urinary problems. Reports he has had abdominal surgical history but is unable to tell me what. <MERCED Tavarez Last Filed: 02/24/23 17:07> Related Data Home medications: Home Medications Medication Instructions Recorded Confirmed atorvastatin 10 mg tablet 10 mg PO DAILY 10/29/22 02/24/23 metformin 1,000 mg tablet 500 mg PO DAILY 10/29/22 02/24/23 mirtazapine 15 mg tablet 15 mg PO HS 10/29/22 02/24/23 quetiapine 300 mg tablet,extended 300 mg PO HS 10/29/22 02/24/23 release 24 hr risperidone 1 mg tablet 2 mg PO BID 10/29/22 02/24/23 insulin lispro 100 unit/mL See Rx Instructions .Route .COMPLEX 02/24/23 02/24/23 subcutaneous pen <Sage Castillo PA-C - Last Filed: 02/24/23 17:07> Allergies/adverse reactions: Allergies Allergy/AdvReac Type Severity Reaction Status Date / Time NSAIDS (Non-Steroidal Allergy Unknown Verified 02/24/23 11:06 Anti-Inflamma <Sage Castillo PA-C - Last Filed: 02/24/23 17:07> Review of Systems Review of Systems: All systems as dictated in HPI <Sage Castillo PA-C - Last Filed: 02/24/23 17:07> [facility] Past Medical History Medical History: Medical History Alcohol abuse Chronic respiratory failure with hypoxia, on home oxygen therapy Closed intertrochanteric fracture of right femur (09/2022) Depression Eczema Insulin dependent type 2 diabetes mellitus Major depressive disorder, recurrent, moderate Pure hypercholesterolemia, unspecified Skull fracture Smoker <Sage Castillo PA-C - Last Filed: 02/24/23 17:07> Surgical History Surgical History: Surgical History (Updated 02/24/23 @ 13:38 by Yuni Cerrato PA-C) History of hernia repair (09/2022) History of repair of hip fracture Right femur intramedullary nail, hip screw by Dr. Kirkpatrick. 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 <Sage Castillo PA-C - Last Filed: 02/24/23 17:07> Family History Family History: Family History (Updated 02/24/23 @ 14:22 by Opal Antoine RN) Sibling Diabetes mellitus <Sage Castillo PA-C - Last Filed: 02/24/23 17:07> Social History Social History: Social History (Updated 02/24/23 @ 15:17 by Yuni Cerrato PA-C) Social History: Surrogate medical decision maker: Danelle Junior, sister. Code status: Full code. Smoking packs per day: 2 Smoking cigarettes per day: 40.0 Years smoked: 20 Smoking pack-years: 40.00 Smoking status: Former smoker Tobacco type: cigarettes Second hand tobacco smoke exposure: No Smoking end date: 10/28/22 Alcohol intake: former Substance use: never Substance use type: does not use Lack of Transportation: YES Lack of Food: Never True Current Housing: I Have Housing Concerned About Future Housing: No Difficulty Paying Gas/Electric Bills: No Difficulty Paying for Meds: No Currently Unemployed
[2023-02-24 10:21] LABS: Add Urine Microscopic? YES
[2023-02-24] MEDS: SODIUM CHLORIDE 0.9% IV 1,000 ML 999 ML IV CONT ×2 (10:38→11:14)
[2023-02-24 10:44] LABS: Lactic Acid Reflex 1.7 mmol/L (0.7-2.0)
--- NOTE | 2023-02-24 13:33 | PM.IMHP ---
H&P: HPI History of Present Illness Date/Time: 02/24/23 13:33 Chief Complaint: Fever and confusion. Narrative: This is a 63-year-old male with history of insulin-dependent type 2 diabetes mellitus, pulmonary embolism, chronic respiratory failure on 3 L nasal cannula, depression, and anxiety presented to the emergency department via EMS from [facility] for evaluation of fever and confusion. At the time of my evaluation he is alert and oriented x3 and provides the following history. He has not been feeling well for several days however he is quite vague with his complaints. He endorses multiple bouts of nonbloody diarrhea each day for last several days however later on in the interview he tells me he has not had a bowel movement for 2 days. He mainly complains of cramping discomfort diffusely throughout the abdomen, may be a bit more so in the suprapubic region on exam. He has apparently been running a fever and he complains of chills and occasional sweats as well. Mouth is dry on exam but he reports that he has been eating and drinking well and he denies nausea and vomiting. He reports rhinorrhea but denies other cold or flu symptoms. He has occasional urinary urgency but denies dysuria. He denies sick contacts. No recent travel or antibiotic use. He was afebrile on arrival to the emergency department with stable blood pressures. Labs were significant for WBC count of 19.4, sodium 130, chloride 97, glucose 443, lactic acid 1.7. Urine was positive for trace leukocyte esterase, 51 to 100 wbc's, and 4+ bacteria. CT of the abdomen and pelvis showed no acute findings. He received 2 L normal saline bolus and 1 g of ceftriaxone he is being admitted in this setting for further treatment and evaluation. Review of Systems Review of Systems: Twelve systems were reviewed. No headache. No syncope or near syncope. No sinus congestion or sore throat. Endorses mild rhinorrhea. No cough. No chest or pleuritic pain. Denies sensations of racing heart. No vomiting. Denies dysuria. Mild urinary frequency. Except as documented, all other systems were reviewed and are negative. FORMERLY [facility], [facility]–1983 Past Medical History Medical History Alcohol abuse Chronic respiratory failure with hypoxia, on home oxygen therapy Closed intertrochanteric fracture of right femur (09/2022) Depression Eczema Insulin dependent type 2 diabetes mellitus Major depressive disorder, recurrent, moderate Pure hypercholesterolemia, unspecified Skull fracture Smoker Surgical History Surgical History (Updated 02/24/23 @ 13:38 by Yuni Cerrato PA-C) History of hernia repair (09/2022) History of repair of hip fracture Right femur intramedullary nail, hip screw by Dr. Kirkpatrick. 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 Family History Family History (Updated 02/24/23 @ 14:22 by Opal Antoine RN) Sibling Diabetes mellitus Social History Social History (Updated 02/24/23 @ 15:17 by Yuni Cerrato PA-C) Social History: Surrogate medical decision maker: Danelle Junior, sister. Code status: Full code. Smoking packs per day: 2 Smoking cigarettes per day: 40.0 Years smoked: 20 Smoking pack-years: 40.00 Smoking status: Former smoker Tobacco type: cigarettes Second hand tobacco smoke exposure: No Smoking end date: 10/28/22 Alcohol intake: former Substance use: never Substance use type: does not use Lack of Transportation: YES Lack of Food: Never True Current Housing: I Have Housing Concerned About Future Housing: No Difficulty Paying Gas/Electric Bills: No Difficulty Paying for Meds: No Currently Unemployed: No Education: High School Diploma/GED Difficulty w/ Childcare or Family Care: No Additional living arrangements comments: Resident at [facility]. Spiritual care concerns: No Meds Home Medications and Allergies Home Medications Medication Instructions Recorded Confirmed Type citalopram 20 mg tablet 20 mg
[2023-02-24] MEDS: SODIUM CHLORIDE 0.9% IV 1,000 ML 125 ML IV CONT ×2 (13:47→21:59)
--- NOTE | 2023-02-24 14:09 | ADMGEN ---
Addendum entered by Opal Antoine RN 02/24/23 14:09: Patient arrived to unit at 1325 Original Note: This patient, Joel Browning, was admitted to 2 Medical Room 248-01. Patient/family oriented to hospital policies and general routines including ID bracelet, bed and alarms, visiting hours, pain management, procedures, bathroom and other care routines, personal items, smoking policy, room service/diet, and visiting hours. Information on how to activate the Rapid Response Team has been discussed. Patient/Family are encouraged to report perceived risks to care and to ask questions if they do not understand what they are told or what they should do.
[2023-02-24 16:11] LABS: Hemoglobin A1C 10.1 % (<5.7)
[2023-02-24 17:37] LABS: Glucose Point of Care 319 mg/dl (65-105)
[2023-02-24] MEDS: INSULIN ASPART (*BKC) 100 UNITS/ML SUB-Q ×2 (17:55→23:20)
[2023-02-24] MEDS: risperiDONE 1 MG TABLET 2 MG PO (17:55)
[2023-02-24] MEDS: QUEtiapine FUMARATE XR 50 MG TAB.ER.24H 100 MG PO (20:07)
[2023-02-24] MEDS: QUEtiapine FUMARATE XR 200 MG TAB.ER.24H PO (20:07)
[2023-02-24] MEDS: MIRTAZAPINE 15 MG TABLET PO (20:07)
[2023-02-24] MEDS: APIXABAN 5 MG TABLET PO (20:07)
[2023-02-24 20:44] LABS: Glucose Point of Care 414 mg/dl (65-105)
[2023-02-24] MEDS: INSULIN ASPART (*BKC) 100 UNITS/ML 10 UNITS SUB-Q (20:56)
[2023-02-24] MEDS: EUCERIN CREAM 120 GM JAR 1 APPLIC TOPICAL (22:00)
[2023-02-24 23:01] LABS: Glucose Point of Care 303 mg/dl (65-105)
[2023-02-25 05:30] VITALS: BP 111/61; PULSE 93; RESP 16; TEMP 37.6; O2SAT 92
[2023-02-25 05:42] LABS: Hematocrit 39.7 % (42.0-52.0); Hemoglobin 12.5 g/dL (14.0-18.0); Mean Corpuscular HGB Conc 31.5 g/dl (32-36); Mean Corpuscular Hemoglobin 30.2 pg (26-34); Mean Corpuscular Volume 95.9 fl (80-100); Platelet Count Result 190 k/mm3 (150-375); Red Blood Count 4.14 M/mm3 (4.6-6.20); Red Cell Distribution Width 13.7 % (11.5-14.5); White Blood Count 16.1 K/mm3 (4.5-10.0)
[2023-02-25 05:52] LABS: Anion Gap 10 mmol/L (8-16); Blood Urea Nitrogen 8 mg/dL (9-20); Calcium 8.7 mg/dL (8.4-10.2); Carbon Dioxide 20 mmol/L (22-30); Chloride 104 mmol/L (98-107); Estimated CRCL calculation 98 ml/min; Estimated Glomerular Filt Rate > 60; Glucose 192 mg/dL (65-110); Potassium 3.8 mmol/L (3.4-5.0); Sodium 134 mmol/L (137-145)
[2023-02-25 08:00] LABS: Glucose Point of Care 213 mg/dl (65-105)
[2023-02-25] MEDS: INSULIN ASPART (*BKC) 100 UNITS/ML SUB-Q ×4 (08:35→20:35)
[2023-02-25] MEDS: INSULIN GLARGINE (*BKC) 100 UNITS/ML 18 UNITS SUB-Q (08:36)
[2023-02-25 08:40] VITALS: O2SAT 96
[2023-02-25] MEDS: ATORVASTATIN 10 MG TABLET PO (08:40)
[2023-02-25] MEDS: risperiDONE 1 MG TABLET 2 MG PO ×2 (08:40→16:58)
[2023-02-25] MEDS: FOLIC ACID 1 MG TABLET PO (08:40)
[2023-02-25] MEDS: THIAMINE HCL 100 MG TABLET PO (08:40)
[2023-02-25] MEDS: APIXABAN 5 MG TABLET PO ×2 (08:40→20:29)
[2023-02-25] MEDS: CYANOCOBALAMIN 1,000 MCG TABLET 1000 MCG PO (08:40)
[2023-02-25] MEDS: PANTOPRAZOLE 40 MG TABLET PO (08:40)
[2023-02-25] MEDS: CITALOPRAM HYDROBROMIDE 20 MG TABLET PO (08:40)
[2023-02-25 11:54] LABS: Glucose Point of Care 281 mg/dl (65-105)
[2023-02-25 14:00] VITALS: BP 112/61; PULSE 82; RESP 16; TEMP 37.8; O2SAT 91
--- NOTE | 2023-02-25 14:48 | PM.IMPN ---
Subjective Date/time seen: 02/25/23 14:48 Objective Data Vital Signs Vital Signs: Vital Signs - 24 hr 02/24/23 19:01 02/24/23 20:10 02/24/23 20:00 Temperature 38.2 C H 37.3 C Pulse Rate 90 Respiratory Rate 16 Blood Pressure 109/60 Pulse Oximetry 92 92 Oxygen Delivery Nasal Cannula Oxygen Flow Rate 3 02/25/23 05:30 02/25/23 08:40 02/25/23 14:00 Temperature 37.6 C 37.8 C H Pulse Rate 93 82 Respiratory Rate 16 16 Blood Pressure 111/61 112/61 Pulse Oximetry 92 96 91 Oxygen Delivery Nasal Cannula Oxygen Flow Rate 3 Intake/Output Intake/Output: Intake & Output 02/22/23 02/23/23 02/24/23 02/25/23 23:59 23:59 23:59 23:59 Intake Total 3450 1510 Output Total 1250 Balance 3450 260 Meds/Results Medications: Active Medications Generic Name Dose Route Start Last Admin Trade Name Freq PRN Reason Stop Dose Admin Acetaminophen 650 mg 02/24/23 15:25 Acetaminophen 325 Mg Tablet PO Q6H PRN Mild Pain (1-3) or Fever Apixaban 5 mg 02/24/23 21:00 02/25/23 08:40 Apixaban 5 Mg Tablet PO 5 mg Q12HR MODESTO Administration Atorvastatin Calcium 10 mg 02/25/23 09:00 02/25/23 08:40 Atorvastatin 10 Mg Tablet PO 10 mg DAILY MODESTO Administration Citalopram Hydrobromide 20 mg 02/25/23 09:00 02/25/23 08:40 Citalopram Hydrobromide 20 Mg Tablet PO 20 mg DAILY MODESTO Administration Cyanocobalamin 1,000 mcg 02/25/23 09:00 02/25/23 08:40 Cyanocobalamin 1,000 Mcg Tablet PO 1,000 mcg QAM MODSETO Administration Dextrose 12.5 gm 02/24/23 15:25 Dextrose 50% 25 Gm/50 Ml Syringe IV PUSH PRN PRN Hypoglycemia Protocol Folic Acid 1 mg 02/25/23 09:00 02/25/23 08:40 Folic Acid 1 Mg Tablet PO 1 mg DAILY MODESTO Administration Glucagon 1 mg 02/24/23 15:25 Glucagon For Inj 1 Mg Vial IM PRN PRN Hypoglycemia Protocol Glucose 15 gm 02/24/23 15:25 Glucose Oral Gel 15 Gm Of Glucse In 37.5 Gm Tube PO PRN PRN Hypoglycemia Protocol Ceftriaxone Sodium 1 gm in 50 mls @ 100 mls/hr 02/25/23 09:00 02/25/23 08:40 Rocephin 1 Gm/Ns 50 Ml IVPB 100 mls/hr Q24H MODESTO Administration Dextrose 1,000 mls @ 100 mls/hr 02/24/23 15:25 Dextrose 5% 1,000 Ml IVPB PRN PRN Hypoglycemia Protocol Insulin Aspart 3 - 6 units 02/24/23 17:00 02/25/23 12:12 Insulin Aspart (*Bkc) 100 Units/Ml SUB-Q 4 units TIDWM MODESTO Administration Protocol Insulin Aspart 1 - 3 units 02/24/23 21:00 02/24/23 20:43 Insulin Aspart (*Bkc) 100 Units/Ml SUB-Q Not Given HS MODESTO Protocol Insulin Glargine 18 units 02/25/23 09:00 02/25/23 08:36 Insulin Glargine (*Bkc) 100 Units/Ml SUB-Q 18 units QAM MODESTO Administration Mirtazapine 15 mg 02/24/23 21:00 02/24/23 20:07 Mirtazapine 15 Mg Tablet PO 15 mg HS MODESTO Administration Multi-Ingred Cream/Lotion/Oil/Oint 1 applic 02/24/23 21:00 02/25/23 08:45 Eucerin Cream 120 Gm Jar TOPICAL Not Given Q12HR MODESTO Ondansetron HCl 4 mg 02/24/23 11:47 Ondansetron Inj 4 Mg/2 Ml Vial IV PUSH Q4H PRN Nausea Pantoprazole Sodium 40 mg 02/25/23 09:00 02/25/23 08:40 Pantoprazole 40 Mg Tablet PO 40 mg QAM MODESTO Administration Quetiapine Fumarate 200 mg 02/24/23 21:00 02/24/23 20:07 Quetiapine Fumarate Xr 200 Mg Tab.Er.24h PO 03/26/23 20:59 200 mg HS MODESTO Administration Quetiapine Fumarate 100 mg 02/24/23 21:00 02/24/23 20:07 Quetiapine Fumarate Xr 50 Mg Tab.Er.24h PO 100 mg HS MODESTO Administration Risperidone 2 mg 02/24/23 17:00 02/25/23 08:40 Risperidone 1 Mg Tablet PO 2 mg BID MODESTO Administration Thiamine HCl 100 mg 02/25/23 09:00 02/25/23 08:40 Thiamine Hcl 100 Mg Tablet PO 100 mg QAM MODESTO Administration Radiology Results: ITS Impressions Abdomen/Pelvis CT 02/24/23 11:22 IMPRESSION: 1. No CT correlate for the patient's symptoms. 2. Diffuse hepatic steato
--- NOTE | 2023-02-25 15:21 | PM.IMPN ---
Progress Note: A&P Assessment and Plan (1) Urinary tract infection: Code(s): N39.0 - Urinary tract infection, site not specified Status: Acute Assessment and Plan: Urinalysis is concerning for UTI and he has been started on ceftriaxone, pending urine culture BC pending (2) Type 2 diabetes mellitus with hyperglycemia: Code(s): E11.65 - Type 2 diabetes mellitus with hyperglycemia Status: Chronic Assessment and Plan: Continue basal insulin. Initiate sliding scale insulin, Accu-Cheks, and hypoglycemic protocol. hemoglobin A1c ordered for am (3) Mild dehydration: Code(s): E86.0 - Dehydration Status: Acute Assessment and Plan: s/p NaCl IVF (4) Anticoagulated: Code(s): Z79.01 - long term (current) use of anticoagulants Status: Chronic Assessment and Plan: continue home Eliquis (5) Chronic respiratory failure with hypoxia, on home oxygen therapy: Code(s): J96.11 - Chronic respiratory failure with hypoxia; Z99.81 - Dependence on supplemental oxygen Status: Chronic Assessment and Plan: Continue home 3L O2 as this is his baseline Subjective Date/time seen: 02/25/23 15:21 Interval history: Patient is a 63-year-old male with PMH of insulin-dependent type 2 diabetes mellitus, pulmonary embolism, chronic respiratory failure on 3 L nasal cannula, depression, admitted from [facility] for evaluation of fever and confusion. He endorsed multiple bouts of nonbloody diarrhea each day for last several days but also reported he had not had a bowel movement for 2 days. He mainly complains of cramping discomfort diffusely throughout the abdomen, may be a bit more so in the suprapubic region on exam. He reports rhinorrhea but denies other cold or flu symptoms. He has occasional urinary urgency but denies dysuria. He denies sick contacts. No recent travel or antibiotic use. Labs on ER admission were significant for WBC count of 19.4, sodium 130, chloride 97, glucose 443, lactic acid 1.7. Urine was positive for trace leukocyte esterase, 51 to 100 wbc's, and 4+ bacteria. CT of the abdomen and pelvis showed no acute findings. He received 2 L normal saline bolus and 1 g of ceftriaxone. Upon exam this afternoon, he is sleeping comfortably. He is a poor historian and difficult to get answers from, although he is A&O. He continues to endorse diffuse abdominal pain without guarding or rebound tenderness. White catheter is in place and draining dark urine. BS have been elevated, will sliding scale insulin. Continue Rocephin until urine culture results. Review of Systems Review of Systems: Twelve systems were reviewed. No headache. No syncope or near syncope. No sinus congestion or sore throat. Endorses mild rhinorrhea. No cough. No chest or pleuritic pain. Denies sensations of racing heart. No vomiting. Denies dysuria. Mild urinary frequency. Except as documented, all other systems were reviewed and are negative. Exam Narrative: General: Chronically ill-appearing gentleman sleeping comfortably upon arrival for exam. He is nontoxic in appearance. HEENT: Wearing corrective lenses. Dysconjugate gaze. PERRL, EOMI. Sclera anicteric. Dry mucous membranes. Neck: Supple. Respiratory: Respirations are nonlabored and lungs are clear to auscultation. Cardiovascular: RRR with S1-S2. Gastrointestinal: Abdomen is protuberant, obese, and mildly tender to palpation in the suprapubic region. No guarding or rebound tenderness. Skin: Warm and dry. No rash or lesions on limited exam. Extremities: No cyanosis, clubbing, or edema. Radial and pedal pulses intact. Neurological: Alert and oriented x3. Cranial nerves 2-12 are grossly intact. Generalized weakness without focal findings. Psychiatric: Cooperative with appropriate mood. He is not confused at this time. Objective Data Vital Signs Vital Signs: Vital Signs - 24 hr 02/24/23 19:01
[2023-02-25 16:59] LABS: Glucose Point of Care 345 mg/dl (65-105)
[2023-02-25 19:49] VITALS: BP 107/58; PULSE 86; RESP 18; TEMP 36.8; O2SAT 92
[2023-02-25 20:00] VITALS: O2SAT 92
[2023-02-25] MEDS: QUEtiapine FUMARATE XR 50 MG TAB.ER.24H 100 MG PO (20:29)
[2023-02-25] MEDS: MIRTAZAPINE 15 MG TABLET PO (20:29)
[2023-02-25] MEDS: QUEtiapine FUMARATE XR 200 MG TAB.ER.24H PO (20:29)
[2023-02-25] MEDS: EUCERIN CREAM 120 GM JAR 1 APPLIC TOPICAL (20:33)
[2023-02-25 20:50] LABS: Glucose Point of Care 365 mg/dl (65-105)
[2023-02-26 05:31] LABS: Hemoglobin A1C 10.1 % (<5.7)
[2023-02-26 05:34] LABS: Basophils Percent Auto 0.1 % (0.2-1.2); Eosinophils Absolute Auto 0.1 K/mm3 (0-0.3); Eosinophils Percent Auto 1.1 % (0-4.4); Hematocrit 39.9 % (42.0-52.0); Hemoglobin 12.8 g/dL (14.0-18.0); Immature Granulocyte Absolute 0.06 K/mm3 (0.00-0.031); Immature Granulocyte Percent A 0.6 % (0-0.5); Lymphocytes Absolute Auto 1.39 K/mm3 (0.9-3.2); Lymphocytes Percent Auto 13.1 % (18.3-44.2); Mean Corpuscular HGB Conc 32.1 g/dl (32-36); Mean Corpuscular Hemoglobin 30.5 pg (26-34); Mean Platelet Volume 10.3 fl (7.4-10.4); Monocytes Absolute Auto 0.9 K/mm3 (0.1-0.6); Monocytes Percent Auto 8.6 % (2.6-8.5); Neutrophils Absolute Auto 8.1 K/mm3 (1.3-6.7); Neutrophils Percent Auto 76.5 % (45.5-73.1); Platelet Count Result 214 k/mm3 (150-375); Red Cell Distribution Width 13.6 % (11.5-14.5); White Blood Count 10.6 K/mm3 (4.5-10.0)
[2023-02-26 05:37] LABS: Albumin Level 3.4 g/dL (3.5-5.1); Anion Gap 10 mmol/L (8-16); Blood Urea Nitrogen 11 mg/dL (9-20); Calcium 8.6 mg/dL (8.4-10.2); Carbon Dioxide 23 mmol/L (22-30); Chloride 101 mmol/L (98-107); Estimated CRCL calculation 98 ml/min; Estimated Glomerular Filt Rate > 60; Glucose 264 mg/dL (65-110); Phosphorus 2.2 mg/dL (2.5-4.5); Potassium 3.7 mmol/L (3.4-5.0); Sodium 134 mmol/L (137-145)
[2023-02-26 06:00] VITALS: BP 119/74; PULSE 86; RESP 18; TEMP 36.8; O2SAT 90
[2023-02-26 08:00] VITALS: O2SAT 90
[2023-02-26 08:33] LABS: Glucose Point of Care 281 mg/dl (65-105)
[2023-02-26] MEDS: ATORVASTATIN 10 MG TABLET PO (08:59)
[2023-02-26] MEDS: CITALOPRAM HYDROBROMIDE 20 MG TABLET PO (08:59)
[2023-02-26] MEDS: PANTOPRAZOLE 40 MG TABLET PO (08:59)
[2023-02-26] MEDS: APIXABAN 5 MG TABLET PO ×2 (08:59→19:54)
[2023-02-26] MEDS: risperiDONE 1 MG TABLET 2 MG PO ×2 (08:59→17:40)
[2023-02-26] MEDS: FOLIC ACID 1 MG TABLET PO (08:59)
[2023-02-26] MEDS: CYANOCOBALAMIN 1,000 MCG TABLET 1000 MCG PO (08:59)
[2023-02-26] MEDS: THIAMINE HCL 100 MG TABLET PO (08:59)
[2023-02-26] MEDS: INSULIN ASPART (*BKC) 100 UNITS/ML SUB-Q ×4 (09:00→20:29)
[2023-02-26] MEDS: INSULIN GLARGINE (*BKC) 100 UNITS/ML 27 UNITS SUB-Q (09:02)
[2023-02-26] MEDS: EUCERIN CREAM 120 GM JAR 1 APPLIC TOPICAL ×2 (09:03→19:57)
[2023-02-26 12:07] LABS: Glucose Point of Care 308 mg/dl (65-105)
--- NOTE | 2023-02-26 12:43 | PM.IMPN ---
Progress Note: A&P Assessment and Plan (1) Urinary tract infection: Code(s): N39.0 - Urinary tract infection, site not specified Status: Acute Assessment and Plan: Urinalysis is concerning for UTI Started on ceftriaxone, Urine culture positive for Gram-negative bacilli BC no growth to date (2) Type 2 diabetes mellitus with hyperglycemia: Code(s): E11.65 - Type 2 diabetes mellitus with hyperglycemia Status: Chronic Assessment and Plan: Initiate sliding scale insulin, Accu-Cheks, and hypoglycemic protocol. hemoglobin A1c 10.1 Lantus increased to 27 units (3) Mild dehydration: Code(s): E86.0 - Dehydration Status: Acute Assessment and Plan: resolved (4) Anticoagulated: Code(s): Z79.01 - prison (current) use of anticoagulants Status: Chronic Assessment and Plan: continue home Eliquis (5) Chronic respiratory failure with hypoxia, on home oxygen therapy: Code(s): J96.11 - Chronic respiratory failure with hypoxia; Z99.81 - Dependence on supplemental oxygen Status: Chronic Assessment and Plan: Continue home 3L O2 as this is his baseline Subjective Date/time seen: 02/26/23 12:43 Interval history: patient doing well today and does not have any new complaints at this time. Waiting for urine culture to return with sensitivities. Patient is difficult to understand he stated that he was not having any difficulty breathing, pain or any urinary symptoms. Exam Narrative: GENERAL: Comfortable, no acute distress HENMT: moist mucous membranes EYES: EOM intact b/l RESPIRATORY: clear to auscultation , on 3 L nasal cannula CARDIO: RRR GI: soft, nontender, bowel sounds present SKIN: no rashes EXTREMITIES: no edema, redness or tenderness Objective Data Vital Signs Vital Signs: Vital Signs - 24 hr 02/25/23 14:00 02/25/23 19:49 02/25/23 20:00 Temperature 100.0 F H 98.3 F Pulse Rate 82 86 Respiratory Rate 16 18 Blood Pressure 112/61 107/58 L Pulse Oximetry 91 92 92 Oxygen Delivery Nasal Cannula Oxygen Flow Rate 3 02/26/23 06:00 02/26/23 08:00 Temperature 98.2 F Pulse Rate 86 Respiratory Rate 18 Blood Pressure 119/74 Pulse Oximetry 90 90 Oxygen Delivery Nasal Cannula Oxygen Flow Rate 3 Intake/Output Intake/Output: Intake & Output 02/23/23 02/24/23 02/25/23 02/26/23 23:59 23:59 23:59 23:59 Intake Total 3450 3550 240 Output Total 1250 2450 Balance 3450 2300 -2210 Meds/Results Medications: Active Medications Generic Name Dose Route Start Last Admin Trade Name Freq PRN Reason Stop Dose Admin Acetaminophen 650 mg 02/24/23 15:25 Acetaminophen 325 Mg Tablet PO Q6H PRN Mild Pain (1-3) or Fever Apixaban 5 mg 02/24/23 21:00 02/26/23 08:59 Apixaban 5 Mg Tablet PO 5 mg Q12HR MODESTO Administration Atorvastatin Calcium 10 mg 02/25/23 09:00 02/26/23 08:59 Atorvastatin 10 Mg Tablet PO 10 mg DAILY MODESTO Administration Citalopram Hydrobromide 20 mg 02/25/23 09:00 02/26/23 08:59 Citalopram Hydrobromide 20 Mg Tablet PO 20 mg DAILY MODESTO Administration Cyanocobalamin 1,000 mcg 02/25/23 09:00 02/26/23 08:59 Cyanocobalamin 1,000 Mcg Tablet PO 1,000 mcg QAM MODESTO Administration Dextrose 12.5 gm 02/24/23 15:25 Dextrose 50% 25 Gm/50 Ml Syringe IV PUSH PRN PRN Hypoglycemia Protocol Folic Acid 1 mg 02/25/23 09:00 02/26/23 08:59 Folic Acid 1 Mg Tablet PO 1 mg DAILY MODESTO Administration Glucagon 1 mg 02/24/23 15:25 Glucagon For Inj 1 Mg Vial IM PRN PRN Hypoglycemia Protocol Glucose 15 gm 02/24/23 15:25 Glucose Oral Gel 15 Gm Of Glucse In 37.5 Gm Tube PO PRN PRN Hypoglycemia Protocol Ceftriaxone Sodium 1 gm in 50 mls @ 100 mls/hr 02/25/23 09:00 02/26/23 08:59 Rocephin 1 Gm/Ns 50 Ml IVPB 100 mls/hr Q24H MODESTO Administration Dext
[2023-02-26 14:00] VITALS: BP 126/68; PULSE 88; RESP 18; TEMP 37.2; O2SAT 95
[2023-02-26 17:22] LABS: Glucose Point of Care 317 mg/dl (65-105)
[2023-02-26] MEDS: MIRTAZAPINE 15 MG TABLET PO (19:54)
[2023-02-26] MEDS: QUEtiapine FUMARATE XR 200 MG TAB.ER.24H PO (19:54)
[2023-02-26] MEDS: QUEtiapine FUMARATE XR 50 MG TAB.ER.24H 100 MG PO (19:54)
[2023-02-26 20:00] VITALS: PULSE 88; RESP 18; O2SAT 95
[2023-02-26 20:22] LABS: Glucose Point of Care 332 mg/dl (65-105)
[2023-02-26 21:59] VITALS: BP 110/69; PULSE 82; RESP 16; TEMP 37.2; O2SAT 97
[2023-02-27 04:06] VITALS: BP 116/66; PULSE 84; RESP 15; TEMP 37.1; O2SAT 92
[2023-02-27 08:05] LABS: Hematocrit 42.5 % (42.0-52.0); Hemoglobin 13.6 g/dL (14.0-18.0); Mean Corpuscular Volume 93.8 fl (80-100); Mean Platelet Volume 9.8 fl (7.4-10.4); Platelet Count Result 273 k/mm3 (150-375); Red Blood Count 4.53 M/mm3 (4.6-6.20); Red Cell Distribution Width 13.2 % (11.5-14.5); White Blood Count 7.5 K/mm3 (4.5-10.0)
[2023-02-27 08:17] LABS: Anion Gap 8 mmol/L (8-16); Blood Urea Nitrogen 11 mg/dL (9-20); Carbon Dioxide 26 mmol/L (22-30); Chloride 98 mmol/L (98-107); Estimated CRCL calculation 112 ml/min; Estimated Glomerular Filt Rate > 60; Glucose 285 mg/dL (65-110); Sodium 132 mmol/L (137-145)
[2023-02-27 08:36] LABS: Glucose Point of Care 302 mg/dl (65-105)
[2023-02-27 09:09] VITALS: O2SAT 97
[2023-02-27] MEDS: CITALOPRAM HYDROBROMIDE 20 MG TABLET PO (09:16)
[2023-02-27] MEDS: PANTOPRAZOLE 40 MG TABLET PO (09:16)
[2023-02-27] MEDS: risperiDONE 1 MG TABLET 2 MG PO ×2 (09:16→17:26)
[2023-02-27] MEDS: FOLIC ACID 1 MG TABLET PO (09:16)
[2023-02-27] MEDS: APIXABAN 5 MG TABLET PO (09:17)
[2023-02-27] MEDS: CYANOCOBALAMIN 1,000 MCG TABLET 1000 MCG PO (09:17)
[2023-02-27] MEDS: THIAMINE HCL 100 MG TABLET PO (09:17)
[2023-02-27] MEDS: ATORVASTATIN 10 MG TABLET PO (09:17)
[2023-02-27 09:26] VITALS: O2SAT 97
[2023-02-27] MEDS: INSULIN ASPART (*BKC) 100 UNITS/ML SUB-Q ×3 (09:26→17:27)
[2023-02-27] MEDS: INSULIN GLARGINE (*BKC) 100 UNITS/ML 35 UNITS SUB-Q (09:27)
[2023-02-27 12:33] LABS: Glucose Point of Care 327 mg/dl (65-105)
[2023-02-27 12:34] LABS: Glucose Point of Care 283 mg/dl (65-105)
[2023-02-27 13:07] LABS: Glucose Point of Care 272 mg/dl (65-105)
[2023-02-27] MEDS: EUCERIN CREAM 120 GM JAR 1 APPLIC TOPICAL (13:21)
--- NOTE | 2023-02-27 13:27 | PM.DS ---
DS: Admitting Diagnosis Discharge Date 02/27/23 Admitting Diagnosis UTI DS: Discharge Diagnosis Discharge Diagnosis (1) Urinary tract infection: Code(s): N39.0 - Urinary tract infection, site not specified Status: Acute (2) Type 2 diabetes mellitus with hyperglycemia: Code(s): E11.65 - Type 2 diabetes mellitus with hyperglycemia Status: Chronic (3) Mild dehydration: Code(s): E86.0 - Dehydration Status: Acute (4) Anticoagulated: Code(s): Z79.01 - detention (current) use of anticoagulants Status: Chronic (5) Chronic respiratory failure with hypoxia, on home oxygen therapy: Code(s): J96.11 - Chronic respiratory failure with hypoxia; Z99.81 - Dependence on supplemental oxygen Status: Chronic DS: Summary Hospital Course Hospital Course: This is a 63-year-old male with a past medical history of insulin-dependent diabetes, PE, chronic respiratory failure on 3 L nasal cannula at baseline, depression and anxiety that presented to the ED on 02/24/2023 for evaluation of altered mental status and fever. He had not been feeling well for several days prior although unable to give much more detail. He was found to be afebrile in the emergency department with a white blood cell count of 19.4, sodium 130, chloride 97, glucose 443, lactic acid 1.7. Urine was positive for trace leukocyte esterase, 51 to 100 wbc's, and 4+ bacteria. CT of the abdomen and pelvis showed no acute findings. He received 2 L normal saline bolus and 1 g of ceftriaxone. Patient improved with IV antibiotic therapy. Urine culture came back positive for Acinetobacter calcoaceticus that was sensitive to Bactrim. He was started on Bactrim on 02/27/2023 and discharged home for a 7 day course of antibiotics. Labs and vital signs are stable needs macro her for discharge at this time. Time Spent with Patient Time attestation: Total time spent providing and/or coordinating discharge services: Exam Narrative: GENERAL: Comfortable, no acute distress HENMT: moist mucous membranes EYES: EOM intact b/l RESPIRATORY: clear to auscultation , on 3 L nasal cannula CARDIO: RRR GI: soft, nontender, bowel sounds present SKIN: no rashes EXTREMITIES: no edema, redness or tenderness DS: Data Data Completed and Pending Labs on day of discharge: Labs from last 24 hours 02/27/23 02/27/23 02/27/23 13:03 12:31 12:21 WBC RBC Hgb Hct MCV MCH MCHC RDW Plt Count MPV Sodium Potassium Chloride Carbon Dioxide Anion Gap BUN Creatinine Estim Creat Clear Calc Estimated GFR Glucose POC Capillary Glucose 272 H 283 H 327 H Calcium 02/27/23 02/27/23 02/26/23 08:30 07:49 20:18 WBC 7.5 RBC 4.53 L Hgb 13.6 L Hct 42.5 MCV 93.8 MCH 30.0 MCHC 32.0 RDW 13.2 Plt Count 273 MPV 9.8 Sodium 132 L Potassium 4.0 Chloride 98 Carbon Dioxide 26 Anion Gap 8 BUN 11 Creatinine 0.60 L Estim Creat Clear Calc 112 Estimated GFR > 60 Glucose 285 H POC Capillary Glucose 302 H 332 H Calcium 9.0 02/26/23 17:19 WBC RBC Hgb Hct MCV MCH MCHC RDW Plt Count MPV Sodium Potassium Chloride Carbon Dioxide Anion Gap BUN Creatinine Estim Creat Clear Calc Estimated GFR Glucose POC Capillary Glucose 317 H Calcium Preliminary micro results at discharge 02/24/23 10:01 Urine Culture - Preliminary Urine Catheterized Gram negative bacilli isolated 02/24/23 10:27 Blood Culture - Preliminary Blood 02/24/23 09:14 Blood Culture - Preliminary Blood Discharge Plan Discharge Attending physician on discharge: Brannon Robins Discharging Clinician: Miracle Vanegas Patient Disposition: [facility] Activity: as tolerated Diet: heart healthy and diabetic Discharge Instructions: Bactrim twice daily for 7 days. Nick
[2023-02-27 14:00] VITALS: BP 118/62; PULSE 80; RESP 16; TEMP 37; O2SAT 92
[2023-02-27] MEDS: SULFAMETHOXAZOLE/TRIMETHOPRIM 800/160 MG DS TABLET 1 TAB PO (15:41)
[2023-02-27 17:08] LABS: Glucose Point of Care 211 mg/dl (65-105)
== END 2023-02-27 17:35 ==
LOC: ANHED 11:51 → ANH2MED 13:12
PROVIDERS: Emergency Medicine; Internal Medicine Critical Care Medicine; Nurse Practitioner; Physician Assistant; Admitting Provider Internal Medicine; Emergency Provider Physician Assistant; PCP Family Medicine Adolescent Medicine; Visit Provider Internal Medicine
DX: N39.0 Urinary tract infection, site not specified (principal); B96.83 Acinetobacter baumannii as the cause of diseases classified elsewhere; E11.65 Type 2 diabetes mellitus with hyperglycemia; E86.0 Dehydration; J96.11 Chronic respiratory failure with hypoxia; Z99.81 Dependence on supplemental oxygen; D72.829 Elevated white blood cell count, unspecified; R00.0 Tachycardia, unspecified; K76.0 Fatty (change of) liver, not elsewhere classified; F41.9 Anxiety disorder, unspecified; R19.7 Diarrhea, unspecified; R10.9 Unspecified abdominal pain; E87.1 Hypo-osmolality and hyponatremia; F10.10 Alcohol abuse, uncomplicated; E78.5 Hyperlipidemia, unspecified; F32.9 Major depressive disorder, single episode, unspecified; Z87.891 Personal history of nicotine dependence; Z86.711 Personal history of pulmonary embolism; Z79.84 Long term (current) use of oral hypoglycemic drugs; Z79.4 Long term (current) use of insulin; Z79.01 Long term (current) use of anticoagulants; Z79.82 Long term (current) use of aspirin; Z79.899 Other long term (current) drug therapy
CPT/HCPCS: 36415; 74177; 80048; 80053; 80069; 81001; 82948; 83036; 83605; 83690; 83735; 84443; 85025; 85027; 87040; 87077; 87086; 87186; 96361; 96365; 96376; 99285; A9270; G0378; J0696; J1815; J7030; Q9967